=== PATIENT | male | born 1945 | race Caucasian/White ===

== ENCOUNTER 2021-09-26 05:12 | Inpatient (IN) | payer MEDICARE, OTHER, SELFPAY ==
[2021-09-26] VITALS (162 sets, daily range): BP systolic 69–112; BP diastolic 50–78; PULSE 105–124; RESP 10–35; TEMP 35.6–37.2; O2SAT 74–100; BMI 22.2
--- NOTE | 2021-09-26 05:18 | XRR_ITS ---
PROCEDURE INFORMATION: Exam: XR Chest Exam date and time: 09/26/2021 5:04 AM Age: 75 years old Clinical indication: Shortness of breath; Chest pressure; Patient HX: C/O chest pain with SOB. Hypoxic on monitor. ; Additional info: Cp TECHNIQUE: Imaging protocol: XR of the chest. Views: 1 view. Total images: 1 COMPARISON: No relevant prior studies available. FINDINGS: Lungs: Hyperinflation with prominent interstitial markings suggesting COPD changes. Pleural spaces: Unremarkable. No pleural effusion. No pneumothorax. Heart/Mediastinum: Unremarkable. No cardiomegaly. Vasculature: Atherosclerosis is evident. Bones/joints: Unremarkable. XR/XR chest 1V portable [id number] IMPRESSION: 1. Hyperinflation with prominent interstitial markings suggesting COPD changes. 2. No acute cardiopulmonary process.
--- NOTE | 2021-09-26 05:18 | ECG_ITS ---
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 Measurements Intervals [place] Rate: 116 P: 88 LA: 126 QRS: 89 QRSD: 104 T: -90 QT: 275 QTc: 383 Interpretive Statements SINUS TACHYCARDIA MARKED ST DEPRESSION, CONSIDER SUBENDOCARDIAL INJURY Compared to ECG 05/06/2014 13:43:28 ST (T wave) deviation now present Sinus rhythm no longer present Electronically Signed On 09-26-2021 20:02:57 CDT by Farnaz Guzman M.D. [id number]
--- NOTE | 2021-09-26 05:20 | ED_ITS ---
Documented by User: Bronson Fulton MD 09/26/21 06:11 HPI - Chest Pain General: Chief Complaint: Chest Pain Stated Complaint: CHEST PAIN Time Seen by Provider: 09/26/21 05:17 Source: patient and EMS Mode of arrival: EMS Limitations: no limitations History of Present Illness: 75-year-old male is here by EMS he had woke up tonight with some shortness of breath and some very mild chest pain EMS states when they arrived he was hypoxic in the 80s they placed him on 3 L of oxygen he was hypotensive to the give him IV fluids and aspirin he is currently pain-free. He denies any chest pain states he just has the shortness of breath. He has not seen a physician he states for over 5 years was a former smoker his glucose was elevated by EMS in the 300s. Associated symptoms: Reports dyspnea; Deny abdominal pain, fever(s), nausea or vomiting Review of Systems Const: Denies: fever(s), chills, body aches or change in appetite Eyes: Denies: blurry vision or eye discomfort ENMT: Denies: throat pain or dental pain Card: Reports: chest pain Resp: Reports: dyspnea GI: Denies: abdominal pain, nausea, vomiting or diarrhea : Denies: dysuria Musc: Denies: neck pain or back pain Skin/Breast: Denies: rash Neuro: Denies: headache(s) Psych: Denies: depression Alonzo/Lymph: Denies: easy bruising All/Imm: Denies: urticaria PFSH ED PFSH: Family History Grandmother Diabetes Social History Smoking and tobacco status: former smoker Second hand smoke exposure: No Smoking risk assessment/counseling performed?: No Alcohol intake: never Desire information about alcohol rehabilitation?: No Counseling given: No Desire information about substance/drug rehabilitation?: No Counseling given: No Adopted: No Caregiver/support person: No Lives independently: Yes Household members: spouse Housing: House Marital status: Number of children: 0 service: Yes status: Retired Current occupational status: retired History of recent travel: No Physical Exam Const: COMMON NORMALS: patient oriented x3 GENERAL APPEARANCE: ill appearing and frail appearing HENMT: COMMON NORMALS: normocephalic and atraumatic HEAD & SCALP: normocephalic and atraumatic Eye: COMMON NORMALS: Equal, round and reactive pupils present and EOMs intact bilaterally PUPIL: Yes Equal, round and reactive pupils present Neck/C-Spine: COMMON NORMALS: full ROM and supple Chest: COMMONS NORMALS: normal inspection of the chest and normal palpation of entire chest wall Resp: COMMON NORMALS: normal respiratory effort, No retractions, No use of accessory muscles and clear to auscultation bilaterally AUSCULTATION: clear to auscultation bilaterally Cardio: COMMON NORMALS: regular rate, regular rhythm and No murmurs present (Cardio) RATE: regular rate RHYTHM: regular rhythm GI: COMMON NORMALS: Normal to inspection, nondistended, normoactive bowel sounds present, Soft to palpation, non-tender and no masses PALPATION: Yes Soft to palpation Extremity: COMMON NORMALS: normal to inspection and full ROM Neuro: COMMON NORMALS: patient oriented x3, moves all extremities and no focal motor deficits Psych: COMMON NORMALS: mental status grossly normal, Normal thought process present and cooperative THOUGHT PROCESS: Normal thought process present Skin: COMMON NORMALS: no rashes or lesions noted and no wounds GENERAL SKIN EXAM: no rashes or lesions noted Course Reevaluation(s): Reevaluation #1: Spoke to Dr. Allen cardiology and reviewed patient's EKG with him patient does have depressions in V4 and V5 no signs of ST elevation he is not having active chest pain at this time or diaphoresis no signs of an acute STEMI at this time we will follow his symptoms EKGs and troponins closely Time: 05:23 Reevaluation #2: Patient's labs came back and he is anemic and did appear anemic here. He does h ave an elevated D-dimer as well concerned he could have possible cancer with his anemia and his profound recent weight loss. He states he is also had some decreased appetite depression as his years ago. He does have an elevated troponin here for 47 I believe that could be some global ischemia from his anemia. I did spoke to Dr. Allen again informed him of this troponin result he agrees he does not believe patient should go to the [facility] at this time as patient has not had any chest pain while he has been here either. We will continue to follow at this time patient care turned over to Dr. [place] Time: 06:10 Vital Signs: Vital signs: Vital Signs Temperature 98.9 F 09/26/21 09:57 Pulse Rate 115 H 09/26/21 09:57 Respiratory Rate 15 09/26/21 09:57 Blood Pressure 86/68 09/26/21 09:57 Pulse Oximetry 100 09/26/21 09:55 MDM - Chest Pain Lab Data : 09/26/21 05:35 09/26/21 05:35 Radiology Impressions Chest X-Ray 09/26/21 05:18 IMPRESSION: 1. Hyperinflation with prominent interstitial markings suggesting COPD changes. 2. No acute cardiopulmonary process. Chest/Abdomen/Pelvis CT 09/26/21 06:05 IMPRESSION: 1. Small bilateral pleural effusions with compressive atelectasis. 2. Moderate centrilobular emphysematous changes are present. 3. Bibasilar interstitial thickening favors mild interstitial edema. 4. No pulmonary artery embolism identified. 5. Minimal lateral right basilar tree in bud, which generally indicate pneumonia/aspiration and/or possibly atypical pneumonia. 6. Irregular area of pleural based opacity posteriorly within the left upper lobe felt to represent an area of scarring. IMPRESSION: 1. Irregular wall thickening of rectum and rectosigmoid junction suspicious for underlying mass and less likely adherent fecal matter. Area measures up to 4 cm in diameter. 2. Moderate stool burden. COMMENTS: Consistent with the [place] [employer] [place] [employer]'s Incidental Findings Committee white paper (J Am Naila Radiol 2018): Any incidental renal lesion less than 1 cm or classified as too small to characterize, or any incidental cystic renal lesion characterized as simple-appearing, is likely benign. No follow-up imaging is recommended for these lesions per consensus recommendations based on imaging criteria. Laboratory Results WBC 26.9 10^3/uL (4.0-10.0) H 09/26/21 05:35 RBC 3.36 10^6/uL (4.1-5.3) L 09/26/21 05:35 Hgb 5.6 g/dL (11.7-16.6) L* 09/26/21 05:35 Hct 22.4 % (42.0-52.0) L 09/26/21 05:35 MCV 66.7 fl (80-94) L 09/26/21 05:35 MCH 16.7 pg (28.0-34.0) L 09/26/21 05:35 MCHC 25.0 g/dL (30.0-36.0) L 09/26/21 05:35 RDW 18.6 % (12.1-15.1) H 09/26/21 05:35 Plt Count 544 10^3/cmm (130-400) H 09/26/21 05:35 MPV 9.1 fL (7.4-10.4) 09/26/21 05:35 Neut % (Auto) 90.3 % 09/26/21 05:35 Lymph % (Auto) 2.5 % 09/26/21 05:35 White % (Auto) 5.6 % 09/26/21 05:35 Eos % (Auto) 0.0 % 09/26/21 05:35 Baso % (Auto) 0.3 % 09/26/21 05:35 Neut # (Auto) 24.27 10^3/uL (1.8-7.7) H 09/26/21 05:35 Lymph # (Auto) 0.7 10^3/uL (0.8-4.8) L 09/26/21 05:35 White # (Auto) 1.5 10^3/uL (0.2-0.9) H 09/26/21 05:35 Eos # (Auto) 0.0 10^3/uL (0.0-0.8) 09/26/21 05:35 Baso # (Auto) 0.1 10^3/uL (0.0-0.1) 09/26/21 05:35 Nucleated RBC % (auto) 1.5 % 09/26/21 05:35 Nucleated RBCs # 0.4 /100WBC 09/26/21 05:35 D-Dimer 0.97 ug/mIFEU (0-0.59) H 09/26/21 05:35 Specimen Type Arterial 09/26/21 06:08 Sample Site Radial, left 09/26/21 06:08 ABG pH 7.36 (7.35-7.45) 09/26/21 06:08 ABG pCO2 25.5 mmHg (35-45) L 09/26/21 06:08 ABG pO2 166.0 mmHg (80.0-100.0) H 09/26/21 06:08 ABG HCO3 14.3 mmol/L (22-26) L 09/26/21 06:08 ABG Base Excess -10.4 mmol/L (-2.0-2.0) L 09/26/21 06:08 Ted Test Pos 09/26/21 06:08 Hematocrit 17.2 % (42-52) L 09/26/21 06:08 O2 Delivery Device Nc 09/26/21 06:08 O2 Liters/Min 3.0 % 09/26/21 06:08 Dark Room Attendant ID Hensa 09/26/21 06:08 Sodium 139 mmol/L (136-145) 09/26/21 05:35 Potassium 4.3 mmol/L (3.5-5.1) 09/26/21 05:35 Chloride 101 mmol/L (98-107) 09/26/21 05:35 Carbon Dioxide 12 mmol/L (22-29) L 09/26/21 05:35 Anion Gap 30.3 (5-19) H 09/26/21 05:35 BUN 34 mg/dL (8-23) H 09/26/21 05:35 Creatinine 1.3 mg/dL (0.7-1.2) H 09/26/21 05:35 GFR Calculation Not Reportable 09/26/21 05:35 Glucose 238 mg/dL (65-115) H 09/26/21 05:35 POC Glucose 262 mg/dL (70-110) H 09/26/21 05:35 Calculated Osmolality 303 mOsm/kg (285-295) H 09/26/21 05:35 Lactic Acid 8.1 mmol/L (0.5-2.2) H* 09/26/21 08:05 Calcium 8.4 mg/dL (8.5-10.5) L 09/26/21 05:35 Total Bilirubin 0.4 mg/dL (0.15-1.2) 09/26/21 05:35 AST 30 U/L (0-40) 09/26/21 05:35 ALT 13 U/L (0-41) 09/26/21 05:35 Alkaline Phosphatase 131 IU/L (40-130) H 09/26/21 05:35 Troponin T Baseline 447 ng/L (0-15) H* 09/26/21 05:35 Troponin T 120 Minute 440.4 ng/L (0-15) H 09/26/21 07:18 Delta Troponin T -6.6 ABS# (0-10) L 09/26/21 07:18 NT-Pro-B Natriuret Pep 36338 pg/mL (0-125) H 09/26/21 05:35 Total Protein 6.2 g/dL (6.6-8.7) L 09/26/21 05:35 Albumin 3.0 g/dL (3.5-5.2) L 09/26/21 05:35 Globulin 3.2 g/dL (1.3-4.6) 09/26/21 05:35 Blood Type O Positive 09/26/21 08:05 Rho(D) Type Positive 09/26/21 08:05 Antibody Screen Negative 09/26/21 08:05 Crossmatch See Detail 09/26/21 08:05 EKG Data EKG 1: I personally reviewed and interpreted this EKG as follows: EKG interpretation date: 09/26/21 EKG interpretation time: 05:16 Interpretation: sinus tach hr 116 st depression in v4-v6 no st elevation qrs 104 qtc 344 Discharge Plan Discharge Patient Disposition: Admitted As Inpatient Clinical Impression: Non-ST elevation [place] (NSTEMI), Anemia, Rectal mass, D-dimer, elevated Condition: Stable Prescriptions: No Action No Known Home Medications 0RF Referrals: Nelida Gunn, [facility] [Primary Care Provider] - Sign Out Sign Out Data: Patient Sign Out occurred on 09/26/21 at 06:26. Patient's care was discussed, and care was transferred from to Yousif Bob DO. Coding Level of Care Code ED Home Economist Consumer Service for Chg Fwd Exam Comprehensive Documented by User: Yousif Bob DO 09/26/21 10:08 HPI - Chest Pain General: Chief Complaint: Chest Pain Stated Complaint: CHEST PAIN Time Seen by Provider: 09/26/21 05:17 [facility] ED PFSH: Family History Grandmother Diabetes Social History Smoking and tobacco status: former smoker Second hand smoke exposure: No Smoking risk assessment/counseling performed?: No Alcohol intake: never Desire information about alcohol rehabilitation?: No Counseling given: No Desire information about substance/drug rehabilitation?: No Counseling given: No Adopted: No Caregiver/support person: No Lives independently: Yes Household members: spouse Housing: House Marital status: Number of children: 0 service: Yes status: Retired Current occupational status: retired History of recent travel: No Course Vital Signs: Vital signs: Vital Signs Temperature 98.9 F 09/26/21 09:57 Pulse Rate 115 H 09/26/21 09:57 Respiratory Rate 15 09/26/21 09:57 Blood Pressure 86/68 09/26/21 09:57 Pulse Oximetry 100 09/26/21 09:55 MDM - Chest Pain Medical Decision Making Care assumed from Dr. Fulton at change of shift. Patient is profoundly anemic with a hemoglobin of 5 6. He has ischemic changes on his EKG with an elevated troponin however he is not a good candidate for any kind of anticoagulation or intervention he is not currently having significant chest discomfort we did review the EKGs Dr. Allen he does not recommend any intervention at this time or anticoagulation due to his anemia. He recommends transfusion which we have already initiated. On CT patient has rectosigmoid mass extending 4 cm. We did a Hemoccult on him which was positive. Patient will be admitted to the ICU he still is hypotensive but his map is above 65 he is mildly tachycardic but that has improved he is currently receiving blood products and has given given crystalloids. Discussed with Dr. Lockwood. We are also starting antibiotics for potential aspiration pneumonia. CT of the chest was done due to elevated D- dimer negative for PE. Orders are written. Medical Records I reviewed the patient's medical records. Lab Data I reviewed the patient's lab results. : 09/26/21 05:35 09/26/21 05:35 Radiology Impressions Chest X-Ray 09/26/21 05:18 IMPRESSION: 1. Hyperinflation with prominent interstitial markings suggesting COPD changes. 2. No acute cardiopulmonary process. Chest/Abdomen/Pelvis CT 09/26/21 06:05 IMPRESSION: 1. Small bilateral pleural effusions with compressive atelectasis. 2. Moderate centrilobular emphysematous changes are present. 3. Bibasilar interstitial thickening favors mild interstitial edema. 4. No pulmonary artery embolism identified. 5. Minimal lateral right basilar tree in bud, which generally indicate pneumonia/aspiration and/or possibly atypical pneumonia. 6. Irregular area of pleural based opacity posteriorly within the left upper lobe felt to represent an area of scarring. IMPRESSION: 1. Irregular wall thickening of rectum and rectosigmoid junction suspicious for underlying mass and less likely adherent fecal matter. Area measures up to 4 cm in diameter. 2. Moderate stool burden. COMMENTS: Consistent with the [place] [employer]'s Incidental Findings Committee white paper (J Am Naila Radiol 2018): Any incidental renal lesion less than 1 cm or classified as too small to characterize, or any incidental cystic renal lesion characterized as simple-appearing, is likely benign. No follow-up imaging is recommended for these lesions per consensus recommendations based on imaging criteria. Laboratory Results WBC 26.9 10^3/uL (4.0-10.0) H 09/26/21 05:35 RBC 3.36 10^6/uL (4.1-5.3) L 09/26/21 05:35 Hgb 5.6 g/dL (11.7-16.6) L* 09/26/21 05:35 Hct 22.4 % (42.0-52.0) L 09/26/21 05:35 MCV 66.7 fl (80-94) L 09/26/21 05:35 MCH 16.7 pg (28.0-34.0) L 09/26/21 05:35 MCHC 25.0 g/dL (30.0-36.0) L 09/26/21 05:35 RDW 18.6 % (12.1-15.1) H 09/26/21 05:35 Plt Count 544 10^3/cmm (130-400) H 09/26/21 05:35 MPV 9.1 fL (7.4-10.4) 09/26/21 05:35 Neut % (Auto) 90.3 % 09/26/21 05:35 Lymph % (Auto) 2.5 % 09/26/21 05:35 White % (Auto) 5.6 % 09/26/21 05:35 Eos % (Auto) 0.0 % 09/26/21 05:35 Baso % (Auto) 0.3 % 09/26/21 05:35 Neut # (Auto) 24.27 10^3/uL (1.8-7.7) H 09/26/21 05:35 Lymph # (Auto) 0.7 10^3/uL (0.8-4.8) L 09/26/21 05:35 White # (Auto) 1.5 10^3/uL (0.2-0.9) H 09/26/21 05:35 Eos # (Auto) 0.0 10^3/uL (0.0-0.8) 09/26/21 05:35 Baso # (Auto) 0.1 10^3/uL (0.0-0.1) 09/26/21 05:35 Nucleated RBC % (auto) 1.5 % 09/26/21 05:35 Nucleated RBCs # 0.4 /100WBC 09/26/21 05:35 D-Dimer 0.97 ug/mIFEU (0-0.59) H 09/26/21 05:35 Specimen Type Arterial 09/26/21 06:08 Sample Site Radial, left 09/26/21 06:08 ABG pH 7.36 (7.35-7.45) 09/26/21 06:08 ABG pCO2 25.5 mmHg (35-45) L 09/26/21 06:08 ABG pO2 166.0 mmHg (80.0-100.0) H 09/26/21 06:08 ABG HCO3 14.3 mmol/L (22-26) L 09/26/21 06:08 ABG Base Excess -10.4 mmol/L (-2.0-2.0) L 09/26/21 06:08 Ted Test Pos 09/26/21 06:08 Hematocrit 17.2 % (42-52) L 09/26/21 06:08 O2 Delivery Device Nc 09/26/21 06:08 O2 Liters/Min 3.0 % 09/26/21 06:08 Dark Room Attendant ID Vika 09/26/21 06:08 Sodium 139 mmol/L (136-145) 09/26/21 05:35 Potassium 4.3 mmol/L (3.5-5.1) 09/26/21 05:35 Chloride 101 mmol/L (98-107) 09/26/21 05:35 Carbon Dioxide 12 mmol/L (22-29) L 09/26/21 05:35 Anion Gap 30.3 (5-19) H 09/26/21 05:35 BUN 34 mg/dL (8-23) H 09/26/21 05:35 Creatinine 1.3 mg/dL (0.7-1.2) H 09/26/21 05:35 GFR Calculation Not Reportable 09/26/21 05:35 Glucose 238 mg/dL (65-115) H 09/26/21 05:35 POC Glucose 262 mg/dL (70-110) H 09/26/21 05:35 Calculated Osmolality 303 mOsm/kg (285-295) H 09/26/21 05:35 Lactic Acid 8.1 mmol/L (0.5-2.2) H* 09/26/21 08:05 Calcium 8.4 mg/dL (8.5-10.5) L 09/26/21 05:35 Total Bilirubin 0.4 mg/dL (0.15-1.2) 09/26/21 05:35 AST 30 U/L (0-40) 09/26/21 05:35 ALT 13 U/L (0-41) 09/26/21 05:35 Alkaline Phosphatase 131 IU/L (40-130) H 09/26/21 05:35 Troponin T Baseline 447 ng/L (0-15) H* 09/26/21 05:35 Troponin T 120 Minute 440.4 ng/L (0-15) H 09/26/21 07:18 Delta Troponin T -6.6 ABS# (0-10) L 09/26/21 07:18 NT-Pro-B Natriuret Pep 95666 pg/mL (0-125) H 09/26/21 05:35 Total Protein 6.2 g/dL (6.6-8.7) L 09/26/21 05:35 Albumin 3.0 g/dL (3.5-5.2) L 09/26/21 05:35 Globulin 3.2 g/dL (1.3-4.6) 09/26/21 05:35 Blood Type O Positive 09/26/21 08:05 Rho(D) Type Positive 09/26/21 08:05 Antibody Screen Negative 09/26/21 08:05 Crossmatch See Detail 09/26/21 08:05 Discharge Plan Discharge Patient Disposition: Admitted As Inpatient Clinical Impression: Non-ST elevation [place] (NSTEMI), Anemia, Rectal mass, D-dimer, elevated Condition: Stable Prescriptions: No Action No Known Home Medications 0RF Referrals: Nelida Gunn, [facility] [Primary Care Provider] - Sign Out Sign Out Data: Patient Sign Out occurred on 09/26/21 at 06:26. Patient's care was discussed, and care was transferred from to Yousif Bob DO. Coding Level of Care Code ED Home Economist Consumer Service for Thug Fwd Exam Comprehensive
[2021-09-26 05:38] LABS: Glucose Point of Care 262 mg/dL (70-110)
[2021-09-26 05:46] LABS: Basophils # 0.1 10^3/uL (0.0-0.1); Basophils % 0.3 %; Hematocrit 22.4 % (42.0-52.0); Lymphocytes # 0.7 10^3/uL (0.8-4.8); Lymphocytes % 2.5 %; Mean Corpuscular Hemoglobin 16.7 pg (28.0-34.0); Mean Corpuscular Volume 66.7 fl (80-94); Mean Platelet Volume 9.1 fL (7.4-10.4); Monocytes # 1.5 10^3/uL (0.2-0.9); Monocytes % 5.6 %; Neutrophils # 24.27 10^3/uL (1.8-7.7); Neutrophils % 90.3 %; Nucleated Red Blood Cells # 0.4 /100WBC; Nucleated Red Blood Cells % 1.5 %; Platelet Count 544 10^3/cmm (130-400); Red Blood Count 3.36 10^6/uL (4.1-5.3); Red Cell Distribution Width 18.6 % (12.1-15.1); White Blood Count 26.9 10^3/uL (4.0-10.0)
[2021-09-26 05:59] LABS: D Dimer 0.97 ug/mIFEU (0-0.59)
[2021-09-26 06:02] LABS: Hemoglobin 5.6 g/dL (11.7-16.6)
--- NOTE | 2021-09-26 06:05 | CTR_ITS ---
PROCEDURE INFORMATION: Exam: CTA Chest With Contrast Exam date and time: 09/26/2021 6:51 AM Age: 75 years old Clinical indication: Abdominal tenderness; Shortness of breath; Additional info: SOB TECHNIQUE: Imaging protocol: Computed tomographic angiography of the chest with contrast. 3D rendering (Not supervised by radiologist): MIP and/or 3D reconstructed images were created by the technologist. Total images: 1117 Radiation optimization: All CT scans at this facility use at least one of these dose optimization techniques: automated exposure control; mA and/or kV adjustment per patient size (includes targeted exams where dose is matched to clinical indication); or iterative reconstruction. Contrast material: OMNI 350; Contrast volume: 95 ml; Contrast route: INTRAVENOUS (IV); COMPARISON: CR XR chest 1V portable [id number] 09/26/2021 5:04 AM RADIATION DOSE METRICS: Total DLP (mGy-cm): 1069.03 FINDINGS: Pulmonary arteries: Pulmonary artery evaluation of good technical quality with no pulmonary artery embolism identified. Aorta: Unremarkable. No aortic aneurysm. No aortic dissection. Other arteries: Mild atherosclerotic disease is evident. Lungs: Compressive atelectasis of the lungs. Moderate centrilobular emphysematous changes are present. Bibasilar interstitial thickening favors mild interstitial edema. Minimal lateral right basilar tree in bud, which generally indicate pneumonia/aspiration and/or possibly atypical pneumonia. Pleural spaces: Small bilateral pleural effusions are present. Irregular area of pleural based opacity posteriorly within the left upper lobe felt to represent an area of scarring. Heart: There is moderate coronary arterial calcification present. Lymph nodes: Unremarkable. No enlarged lymph nodes. Bones/joints: Multiple Schmorl's nodes noted. Soft tissues: Unremarkable. PROCEDURE INFORMATION: Exam: CT Abdomen And Pelvis With Contrast Exam date and time: 09/26/2021 6:51 AM Age: 75 years old Clinical indication: Abdominal tenderness; Shortness of breath; Additional info: SOB TECHNIQUE: Imaging protocol: Computed tomography of the abdomen and pelvis with contrast. Radiation optimization: All CT scans at this facility use at least one of these dose optimization techniques: automated exposure control; mA and/or kV adjustment per patient size (includes targeted exams where dose is matched to clinical indication); or iterative reconstruction. Contrast material: OMNI 350; Contrast volume: 95 ml; Contrast route: INTRAVENOUS (IV); COMPARISON: CR XR chest 1V portable [id number] 09/26/2021 5:04 AM RADIATION DOSE METRICS: Total DLP (mGy-cm): 1069.03 FINDINGS: Liver: Normal. No mass. Gallbladder and bile ducts: Normal. No calcified stones. No ductal dilation. Pancreas: Normal. No ductal dilation. Spleen: Normal. No splenomegaly. Adrenal glands: Normal. No mass. Kidneys and ureters: 5.4 cm largest cyst noted in kidneys that have multiple simple renal cysts. No further evaluation required. Stomach and bowel: Irregular wall thickening of rectum and rectosigmoid junction suspicious for underlying mass and less likely adherent fecal matter. Area measures up to 4 cm in diameter. Moderate stool burden. Appendix: No evidence of appendicitis. Intraperitoneal space: Unremarkable. No free air. No significant fluid collection. Vasculature: Moderate atherosclerotic disease is evident. Mildly dilated infrarenal abdominal aorta measured at 2.2 cm. Lymph nodes: Unremarkable. No enlarged lymph nodes. Urinary bladder: Unremarkable as visualized. Reproductive: The prostate gland contains benign-appearing calcifications that are likely parenchymal. Bones/joints: Unremarkable. No acute fracture. Soft tissues: Unremarkable. CT/CT angio chest w abd pel w con IMPRESSION: 1. Small bilateral pleural effusions with compressive atelectasis. 2. Moderate centrilobular emphysematous changes are present. 3. Bibasilar interstitial thickening favors mild interstitial edema. 4. No pulmonary artery embolism identified. 5. Minimal lateral right basilar tree in bud, which generally indicate pneumonia/aspiration and/or possibly atypical pneumonia. 6. Irregular area of pleural based opacity posteriorly within the left upper lobe felt to represent an area of scarring. IMPRESSION: 1. Irregular wall thickening of rectum and rectosigmoid junction suspicious for underlying mass and less likely adherent fecal matter. Area measures up to 4 cm in diameter. 2. Moderate stool burden. COMMENTS: Consistent with the [place] [employer]'s Incidental Findings Committee white paper (J Am Naila Radiol 2018): Any incidental renal lesion less than 1 cm or classified as too small to characterize, or any incidental cystic renal lesion characterized as simple-appearing, is likely benign. No follow-up imaging is recommended for these lesions per consensus recommendations based on imaging criteria.
[2021-09-26 06:07] LABS: Troponin(5th) Baseline 447 ng/L (0-15)
[2021-09-26 06:15] LABS: Alanine Aminotransferase 13 U/L (0-41); Alkaline Phosphatase 131 IU/L (40-130); Anion Gap 30.3 (5-19); Aspartate Amino Transferase 30 U/L (0-40); Blood Urea Nitrogen 34 mg/dL (8-23); Calcium 8.4 mg/dL (8.5-10.5); Carbon Dioxide 12 mmol/L (22-29); Chloride 101 mmol/L (98-107); Globulin 3.2 g/dL (1.3-4.6); Glucose 238 mg/dL (65-115); NT Pro B Type Natriuretic Pept 14818 pg/mL (0-125); Osmolality Calculated 303 mOsm/kg (285-295); Potassium 4.3 mmol/L (3.5-5.1); Sodium 139 mmol/L (136-145); Total Bilirubin 0.4 mg/dL (0.15-1.2); Total Protein 6.2 g/dL (6.6-8.7)
[2021-09-26 06:19] LABS: Creatinine Clr Calc Pharmacy 46.1323
[2021-09-26 06:21] LABS: ABG PCO2 25.5 mmHg (35-45); ABG PH Result 7.36 (7.35-7.45); Arterial Blood Gas Hematocrit 17.2 % (42-52); Base Excess ABG -10.4 mmol/L (-2.0-2.0); Blood Gas Allen Test Pos; Blood Gas Sample Site Radial, left; Blood Gas Sample Type Arterial; HCO3 ABG 14.3 mmol/L (22-26); Oxygen Device NC
--- NOTE | 2021-09-26 07:18 | ECG_ITS ---
[facility] Test Date: 2021-09-26 Pat Name: Keenan Burroughs Department: Room: Gender: Male Supervisor Stone: : 1945 Requested By: Bronson Fulton Order Number: [id number] Curtis MD: Farnaz Guzman M.D. Measurements Intervals [place] Rate: 116 P: 81 HI: 141 QRS: 89 QRSD: 91 T: 0 QT: 289 QTc: 402 Interpretive Statements SINUS TACHYCARDIA MARKED ST DEPRESSION, CONSIDER SUBENDOCARDIAL INJURY Compared to ECG 09/26/2021 05:16:56 No significant changes Electronically Signed On 09-26-2021 20:21:57 CDT by Farnaz Guzman M.D. [id number]
[2021-09-26] MEDS: iohexol 350 mg/mL 100 mL Btl IV (07:26)
--- NOTE | 2021-09-26 07:54 | PC.PHAR ---
pt states he takes no rx or otc medications-no meds pull up on ext med history
[2021-09-26 08:11] LABS: Troponin 5 2HR Delta -6.6 ABS# (0-10)
[2021-09-26 08:12] LABS: Troponin 5 2HR 440.4 ng/L (0-15)
[2021-09-26] MEDS: lactated ringers 1,000 ML 999 ML IV (08:41)
[2021-09-26 08:47] LABS: Lactic Sepsis W/Reflex 8.1 mmol/L (0.5-2.2)
[2021-09-26] MEDS: piperacillin-tazobactam 3.375 GM in sodium chloride 0.9% (plus) 50 ML IV ×3 (09:01→23:11)
[2021-09-26 10:12] LABS: Reflex Lactate Order REFLEX LACTIC ORDERD
--- NOTE | 2021-09-26 11:12 | P.HP_ITS ---
Providers/Chief Complaint Admitting Physician: Kalpesh Lockwood MD Primary Care Provider: ABY Guallpa Chief Complaint: CHEST PAIN History of Present Illness Keenan Burroughs is a 75 year old male who presents to the emergency department complaining of significant dizziness, shortness of breath, and fatigue. He denies any chest discomfort. He reports no blood in his stool, black or tarry stool. Symptoms have been going on for weeks but worsening. He has lost about 20 pounds in the last 2 to 3 months. Within the last year he also lost his . No vomiting, severe reflux, blood in urine. Denies nosebleeds. States he has no real health problems. In the emergency department he was found to be significantly hypotensive, anemic, and have an abnormal EKG. He is currently being transfused, getting IV fluids as well as IV antibiotics. Sodium bicarb was given as well. Blood pressure appears to be improving. Review of Systems General: Reports: 10 or more systems reviewed and unremarkable except in HPI and below Const: Reports: malaise; Denies: fever(s) or chills Eyes: Denies: change in vision ENMT: Denies: throat pain Card: Reports: pre-syncope and dyspnea on exertion; Denies: chest pain Resp: Reports: dyspnea GI: Denies: abdominal pain, nausea, vomiting, hematemesis, hematochezia or melena : Denies: flank pain Musc: Denies: neck pain Skin/Breast: Denies: rash Neuro: Denies: headache(s) Psych: Denies: anxiety or depression Endo: Denies: polyuria Alonzo/Lymph: Denies: easy bruising All/Imm: Denies: urticaria Medications/Allergies Home Medications Medication Instructions Recorded Confirmed Last Taken Type No Known Home Medications 09/01/20 09/26/21 Unknown History Allergies Allergy/AdvReac Type Severity Reaction Status Date / Time No Known Allergies Allergy Verified 09/26/21 07:55 PFSH Acute PFSH: Surgical History (Updated 09/26/21 @ 11:17 by Kalpesh Lockwood MD) History of hemorrhoidectomy Family History Grandmother Diabetes Social History Smoking and tobacco status: former smoker Second hand smoke exposure: No Smoking risk assessment/counseling performed?: No Alcohol intake: never Desire information about alcohol rehabilitation?: No Counseling given: No Desire information about substance/drug rehabilitation?: No Counseling given: No Adopted: No Caregiver/support person: No Lives independently: Yes Household members: spouse Housing: House Marital status: Number of children: 0 service: Yes status: Retired Current occupational status: retired History of recent travel: No Vitals/I&O/Wt Last Vital Signs Temp 98.8 F 09/26/21 10:24 Pulse 109 H 09/26/21 10:24 Resp 15 09/26/21 10:24 BP 92/70 09/26/21 10:24 Pulse Ox 100 09/26/21 10:24 09/25/21 09/26/21 09/26/21 22:59 06:59 14:59 Intake Total 1050 / 1050 Balance 1050 / 1050 Weight last 48 hrs Weight 64.41 kg Physical Exam Narrative: General exam demonstrates a pale appearing male, who is conversant and pleasant he denies any significant chest discomfort. He reports he feels better than on presentation. HEENT: Atraumatic normocephalic. Pupils equally round. Oropharynx clear. Arcus senilis noted. Neck is supple no lymphadenopathy or thyromegaly Cardiovascular tachycardic, no murmur. No S3 or S4 Lungs clear to auscultation bilaterally. No wheezing or crackles Abdomen is soft nontender positive bowel sounds. No obvious organomegaly exam is deferred Extremities no cyanosis clubbing or edema, cap refill brisk Skin no rash Neuro no focal deficits. Data : 09/26/21 05:35 09/26/21 05:35 Other Labs: EKG demonstrated sinus tachycardia with a rate of 116, normal axis, T wave depression V4 through 6, impressive Dimer elevated at 0.97 ABG with a pH of 7.36, PCO2 25, PO2 of 166 Initial lactic acid 8.1, repeat pending LFTs normal Calcium 8.4 Alk phos 131 Troponin 447 with repeat of 440 BNP 14,818 Albumin 3.0 Chest x-ray no infiltrate CT chest abdomen and pelvis demonstrates right lung pneumonia/aspiration, COPD changes, small bilateral effusions. CT abdomen pelvis demonstrated irregular wall thickening rectosigmoid junction suspicious for underlying mass, moderate stool Blood cultures were obtained Micro: Microbiology 09/26/21 08:18 Blood Culture - Preliminary Blood SPECIMEN COLLECTED 09/26/21 08:05 Blood Culture - Preliminary Blood SPECIMEN COLLECTED A&P Assessment and plan (1) Anemia: Severe anemia, microcytic. I suspect this is been going on quite a while. Likely linked to concern of rectal mass. Severe anemia as cause complication of non-ST elevation myocardial infarction, hypotension, severe acidosis. Agree with fluid resuscitation started in the emergency department as well as 2 units of packed red blood cells currently being transfused. Check iron studies Repeat hemoglobin 1 hour following transfusion. Transfuse further if needed. Target hemoglobin above 8 initially considering significant abnormal EKG on admission but could transfuse further if any ongoing cardiac concerns are noted after resuscitation Protonix IV Status: Acute (2) Non-ST elevation DC (NSTEMI): This is likely caused by severe anemia on presentation. Will provide statin. Aspirin, anticoagulation, nitrates, beta-hernesto all contraindicated with his hypotension and anemia with presumed blood loss. Will reevaluate as he stabilizes. 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 Status: Acute (3) Hypotension: Likely secondary to his severe anemia. This is improving with transfusion and fluid resuscitation. Continue to monitor closely in the ICU. Status: Acute (4) Rectal mass: Concern of rectal mass noted in colon. Has underlying anemia, likely iron deficient Will need exploration, after the patient has been resuscitated and stabilized. Consider GI consultation at that time. Status: Acute (5) D-dimer, elevated: Secondary to acute illness. Pulmonary embolism not suspected. Status: Acute (6) Pneumonia: Probable right lower lobe pneumonia, possible aspiration noted on admission. Zosyn IV, sputum culture, MRSA PCR Oxygen as needed Status: Acute (7) Metabolic acidosis: Secondary to severe anemia and hypotension. This should resolve with hydration and resuscitation Status: Acute Plan Full code SCDs for DVT prophylaxis. Anticoagulation contraindicated secondary to severe anemia Attestations Medical Necessity Statement*: Will need greater than 2 midnight stay for anthony luation and treatment of severe anemia, hypotension, non-ST elevation DC, colonic tumor Critical Care Time: The high probability of a clinically significant, sudden or life threatening deterioration of the patient's [cardiac, hematologic, pulmonary, gastrointestinal system(s) required my full and direct attention, intervention and personal management. The critical care time is as shown. 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
--- NOTE | 2021-09-26 11:18 | ECG_ITS ---
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 Measurements Intervals [place] Rate: 112 P: 68 DE: 120 QRS: 78 QRSD: 92 T: -90 QT: 342 QTc: 467 Interpretive Statements SINUS TACHYCARDIA LOW QRS VOLTAGE IN EXTREMITY LEADS [QRS DEFLECTION < 0.5 mV IN LIMB LEADS] ST DEPRESSION, CONSIDER SUBENDOCARDIAL INJURY [0.1+ mV ST DEPRESSION] Compared to ECG 09/26/2021 07:27:54 Low QRS voltage now present ST (T wave) deviation still present Electronically Signed On 09-26-2021 20:17:48 CDT by Farnaz Guzman M.D. [id number]
--- NOTE | 2021-09-26 11:22 | USCV_ITS ---
Keenan Burroughs Age: 75 Gender: M : 1945 Exam Date: 09/26/2021 12:07 Ordering Phys: Kalpesh Lockwood MD Technologist: SUSY [place] [facility] [place]ication: NSTEMI. No hx cardiac intervention per patient. BP: 83 / 66 HR: 40 Rhythm: sinus tachycardia Technical Quality: Adequate MEASUREMENTS (Male / Female) Normal Values 2D ECHO LV Diastolic Diameter PLAX 4.4 cm 4.2 - 5.9 / 3.9 - 5.3 cm LV Systolic Diameter PLAX 3.9 cm IVS Diastolic Thickness 0.9 cm 0.6 - 1.0 / 0.6 - 0.9 cm IVS Systolic Thickness 1.0 cm LVPW Diastolic Thickness 0.8 cm 0.6 - 1.0 / 0.6 - 0.9 cm LVPW Systolic Thickness 1.3 cm LVOT Diameter 2.0 cm LV Ejection Fraction 2D Teich 27.1 % LV Ejection Fraction MOD 2C 28.1 % LV Ejection Fraction 2C AL 29.5 % LA Diameter 3.5 cm RA Width 3.6 cm RA Height 4.1 cm Aorta at Sinotubular Diameter 3.3 cm M-MODE Aortic Annulus Diameter 3.4 cm LA Ao Ratio MM 1.0 MV E Point Septal Separation 2.7 cm DOPPLER AV Peak Velocity 193.7 cm/s LVOT Peak Velocity 45.0 cm/s AV Area Cont Eq vti 0.8 cm squared AV Area Cont Eq pk 0.7 cm squared MV Area PHT 3.5 cm squared MV E' Velocity 50.0 cm/s Mitral E to MV E' Ratio 12.1 Mitral E to LV E' Lateral Ratio 10.2 Mitral E to LV E' Septal Ratio 14.8 TR Peak Velocity 269.0 cm/s TR Peak Gradient 28.9 mmHg TV Peak E Velocity 56.0 cm/s PV Peak Velocity 146.0 cm/s RV Acceleration Time 0.1 s RV Ejection Time 0.3 s RV AcT/ET 0.3 FINDINGS Left Ventricle The ventricle is normal in size to slightly enlarged. There is severe global hypokinesis with near akinesis of the anterior wall, septum and apex. This would suggest an LAD lesion however with the tachycardia the specifics of the wall motion disturbances are difficult. The overall ejection fraction is about 25%. Grade 2 diastolic dysfunction. Right Ventricle Normal right ventricular size and systolic function. Right Atrium Mildly increased right atrial size. Left Atrium Moderately increased left atrial size. Mitral Valve Structurally normal mitral valve. Severe mitral valve regurgitation. Aortic Valve Structurally normal aortic valve without significant sclerosis or stenosis. There is no aortic regurgitation. Tricuspid Valve Structurally normal tricuspid valve. Trace to mild tricuspid valve regurgitation. Pulmonic Valve Pulmonic valve not well visualized. Pericardium Trivial non-hemodynamically significant pericardial effusion. Large pleural effusion Aorta Normal ascending aorta dimension. CONCLUSIONS The ventricle is normal in size to slightly enlarged. There is severe global hypokinesis with near akinesis of the anterior wall, septum and apex. This would suggest an LAD lesion however with the tachycardia the specifics of the wall motion disturbances are difficult. The overall ejection fraction is about 25%. Grade 2 diastolic dysfunction. Mildly increased right atrial size. Moderately increased left atrial size. Structurally normal mitral valve. Severe mitral valve regurgitation. Trivial non-hemodynamically significant pericardial effusion. Large pleural effusion. There are no prior echocardiogram studies to compare. Dr. Ryan Allen MD (Electronically Signed) Final Date: 26 Sep 2021 17:10 S
[2021-09-26 11:26] LABS: Hematocrit 31.8 % (42.0-52.0); Hemoglobin 8.9 g/dL (11.7-16.6)
[2021-09-26 11:47] LABS: Lactic Acid level (Lactate) 6.2 mmol/L (0.5-2.2)
[2021-09-26] MEDS: pantoprazole 40 mg SDV IVP ×2 (12:00→23:11)
[2021-09-26] MEDS: sodium chloride 0.9% 1,000 ML 100 ML IV (12:00)
[2021-09-26 12:03] LABS: Ferritin 8 ng/mL (30-400); Iron 28 ug/dL (59-158); Thyroid Stimulating Hormone 3.66 uIU/mL (0.27-4.20); Total Iron Binding Capacity 350 mcg/dl; Unsaturated Iron Binding 322 ug/dL (112-347)
[2021-09-26 12:05] LABS: Troponin 5 6HR 889.1 ng/L (0-15); Troponin 5 6HR Delta 442.1 ng/L (0-12)
[2021-09-26] MEDS: sodium chloride 0.9% 500 ML 999 ML IV (14:14)
[2021-09-26 16:00] LABS: Hematocrit 29.2 % (42.0-52.0); Hemoglobin 8.4 g/dL (11.7-16.6)
--- NOTE | 2021-09-26 16:10 | PC.NURSE ---
Patients hemoglobin remains low, called Dr. Lockwood per his request upon lab results. Received order to transfuse 1 unit packed red blood cells and a PRN levophed order to maintain MAP>65.
[2021-09-26] MEDS: atorvastatin 40 mg Tablet PO (20:12)
[2021-09-27] VITALS (25 sets, daily range): BP systolic 80–109; BP diastolic 56–82; PULSE 100–126; RESP 15–41; TEMP 36.6–36.9; O2SAT 91–100
[2021-09-27 03:23] LABS: Basophils % 0.1 %; Hemoglobin 10.3 g/dL (11.7-16.6); Lymphocytes # 0.7 10^3/uL (0.8-4.8); Lymphocytes % 3.5 %; Mean Corpuscular HGB Conc 30.3 g/dL (30.0-36.0); Mean Corpuscular Hemoglobin 21.1 pg (28.0-34.0); Mean Corpuscular Volume 69.8 fl (80-94); Mean Platelet Volume 9.7 fL (7.4-10.4); Monocytes % 9.7 %; Neutrophils % 86.1 %; Nucleated Red Blood Cells # 0.2 /100WBC; Nucleated Red Blood Cells % 1.2 %; Platelet Count 502 10^3/cmm (130-400); Red Blood Count 4.87 10^6/uL (4.1-5.3); Red Cell Distribution Width 22.7 % (12.1-15.1); White Blood Count 20.2 10^3/uL (4.0-10.0)
[2021-09-27 04:00] LABS: Alanine Aminotransferase 157 U/L (0-41); Albumin Level 3.1 g/dL (3.5-5.2); Alkaline Phosphatase 128 IU/L (40-130); Anion Gap 23.2 (5-19); Aspartate Amino Transferase 236 U/L (0-40); Blood Urea Nitrogen 42 mg/dL (8-23); Calcium 8.6 mg/dL (8.5-10.5); Carbon Dioxide 16 mmol/L (22-29); Chloride 107 mmol/L (98-107); Chol HDL Ratio 3.06 mg/dL (1.0-5.00); Cholesterol 101 mg/dL (0-200); Globulin 2.6 g/dL (1.3-4.6); Glucose 102 mg/dL (65-115); HDL Cholesterol 33 mg/dL (60-100); LDL Cholesterol Calculated 53 mg/dL (50-129); LDL HDL Ratio 1.61 RATIO (0.00-3.22); Magnesium 2.3 mg/dL (1.7-2.3); Osmolality Calculated 303 mOsm/kg (285-295); Potassium 5.2 mmol/L (3.5-5.1); Sodium 141 mmol/L (136-145); Total Bilirubin 2.1 mg/dL (0.15-1.2); Total Protein 5.7 g/dL (6.6-8.7); Triglycerides 74 mg/dL (0-150)
[2021-09-27] MEDS: piperacillin-tazobactam 3.375 GM in sodium chloride 0.9% (plus) 50 ML IV ×3 (06:06→23:45)
[2021-09-27 07:14] LABS: Add Urine Microscopic? YES; Bilirubin Urine Neg (Negative); Blood Urine 2+ (Negative); Glucose Urine UA Norm (Normal); Ketones Urine 1+ (Negative); Leukocyte Esterase Urine Negative (Negative); Nitrate Urine Negative (Negative); Protein Urine 1+ (Negative); RBC Urine RARE /hpf (0-2); Specific Gravity, Urine 1.015 (1.005-1.030); Urine Appearance Clear (CLEAR); Urine Color Yellow (Yellow); Urobilinogen Urine Norm (Negative); WBC Urine RARE /hpf (0-5); pH Urine 5 (5-7)
[2021-09-27 07:15] LABS: Bacteria Urine TRACE /hpf
--- NOTE | 2021-09-27 07:36 | ECG_ITS ---
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 Measurements Intervals [place] Rate: 112 P: 66 SC: 124 QRS: 84 QRSD: 93 T: 0 QT: 328 QTc: 448 Interpretive Statements SINUS TACHYCARDIA LOW QRS VOLTAGE IN EXTREMITY LEADS [QRS DEFLECTION < 0.5 mV IN LIMB LEADS] SEPTAL MYOCARDIAL INFARCTION , PROBABLY OLD [40+ ms Q WAVE IN V1/V2] ST DEPRESSION, CONSIDER SUBENDOCARDIAL INJURY [0.1+ mV ST DEPRESSION] Compared to ECG 09/26/2021 14:08:18 Myocardial infarct finding now present ST (T wave) deviation still present Electronically Signed On 09-27-2021 11:05:51 CDT by Ryan Allen M.D. [id number]
[2021-09-27 08:13] LABS: Bacillus cereus group Not Detected (NOT DETECT); Bacillus subtillis group Not Detected (NOT DETECT); Corynebacterium Not Detected (NOT DETECT); Cutibacterium acnes (P.acnes) Not Detected (NOT DETECT); Enterococcus Not Detected (NOT DETECT); Enterococcus faecalis Not Detected (NOT DETECT); Enterococcus faecium Not Detected (NOT DETECT); Lactobacillus species Not Detected (NOT DETECT); Listeria Not Detected (NOT DETECT); Listeria monocytogenes Not Detected (NOT DETECT); Micrococcus Not Detected (NOT DETECT); Pan Candida Not Detected (NOT DETECT); Pan Gram-Negative Not Detected (NOT DETECT); Staphylococcus epidermidis Detected (NOT DETECT); Staphylococcus lugdunensis Not Detected (NOT DETECT); Staphylococcus species Detected (NOT DETECT); Streptococcus agalactiae Not Detected (NOT DETECT); Streptococcus anginosus group Not Detected (NOT DETECT); Streptococcus pneumoniae Not Detected (NOT DETECT); Streptococcus pyogenes Not Detected (NOT DETECT); Streptococcus species Not Detected (NOT DETECT); mecA Not Detected (NOT DETECT); mecC Not Detected (NOT DETECT)
--- NOTE | 2021-09-27 08:48 | PM.PN ---
Subjective Subjective: Keenan reports he feels much better. No chest pain or shortness of breath. Denies any abdominal pain. Is getting hungry. Currently on clear liquids. Medications: Reviewed: Yes Vitals/I&O/Wt Last Vital Signs Temp 98.2 F 09/27/21 06:00 Pulse 111 H 09/27/21 07:00 Resp 19 H 09/27/21 07:00 BP 92/67 09/27/21 07:00 Pulse Ox 100 09/27/21 07:00 09/26/21 09/27/21 09/27/21 22:59 06:59 14:59 Intake Total 1750 / 3550 50 / 3600 Output Total 101 / 101 Balance 1750 / 3550 -51 / 3499 Weight last 48 hrs Weight 63.503 kg Weight 64.41 kg Physical Exam Narrative: General exam demonstrates a male in no apparent distress Neck is supple no lymphadenopathy or thyromegaly Cardiovascular tachycardic, no murmur. No S3 or S4 Lungs clear to auscultation bilaterally. No wheezing or crackles Abdomen is soft nontender positive bowel sounds. No obvious organomegaly Extremities no cyanosis clubbing or edema, cap refill brisk Skin no rash Neuro no focal deficits. Data : 09/27/21 02:52 09/27/21 02:52 Micro: Microbiology 09/26/21 08:18 Blood Culture - Preliminary Blood NEGATIVE TO DATE 09/26/21 08:05 Blood Culture - Preliminary Blood 09/26/21 14:19 Occult Blood (FIT) - Final Stool - Stool Aspirate A&P Assessment and plan (1) Anemia: Severe anemia, microcytic. I suspect this is been going on quite a while. Likely linked to concern of rectal mass. Severe anemia as cause complication of non-ST elevation myocardial infarction, hypotension, severe acidosis. Ultimately where he received 3 units of packed red blood cells. Hemoglobin this morning 10.3. Iron studies consistent with iron deficiency anemia Continue Protonix IV Secondary to concern of rectosigmoid mass, severe anemia, surgery consult will be obtained for possible direct visualization of mass, biopsies Status: Acute (2) Non-ST elevation NE (NSTEMI): This is likely caused by severe anemia on presentation. Continue statin. Aspirin, anticoagulation, nitrates, beta-hernesto all contraindicated with his hypotension and anemia with presumed blood loss. Echocardiogram demonstrates EF around 25% Cardiology consultation will be obtained, will need to coordinate with surgical services. Status: Acute (3) Hypotension: Likely secondary to his severe anemia. This is improved. He did require a small amount of norepinephrine, which she is on 2 mcg currently. Hopefully this can be tapered off. Fluids have now been discontinued as he appears euvolemic, and could have significant decompensation from heart failure should significant fluid still be administered with his EF of 25%. Status: Acute (4) Rectal mass: Concern of rectal mass noted in colon. Has underlying anemia, likely iron deficient Surgery consultation Status: Acute (5) D-dimer, elevated: Secondary to acute illness. Pulmonary embolism not suspected. Status: Acute (6) Pneumonia: Probable right lower lobe pneumonia, possible aspiration noted on admission. Zosyn IV, sputum culture, MRSA PCR pending Oxygen as needed Blood culture growing 1 out of 4 bottles gram-positive cocci. Although this is likely contaminant, will start vancomycin until further information is obtained by culture secondary to his severe presentation and hypotension. Status: Acute (7) Metabolic acidosis: Secondary to severe anemia and hypotension. This is improving Status: Acute Plan Elevated liver test, mild elevation of potassium, mild elevation of creatinine. This is all consistent with his severe hypotension on presentation, secondary to hypovolemic shock. Hopefully we will see correction of this throughout the day. Full code SCDs for DVT prophylaxis. Anticoagulation contraindicated secondary to severe anemia Attestations Medical Necessity Statement*: Needs continued hospitalization, secondary to acute non-ST elevation myocardial infarction, GI bleeding, severe anemia Critical Care Time: The high probability of a clinically significant, sudden or life threatening deterioration of the patient's [GI, pulmonary, cardiac system(s) required my full and direct attention, intervention and personal management. The critical care time is as shown. 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
[2021-09-27] MEDS: pantoprazole 40 mg SDV IVP ×2 (11:02→23:45)
[2021-09-27] MEDS: vancomycin 1,250 MG/250 ML PIGGYBACK 250 MG IV (11:02)
--- NOTE | 2021-09-27 11:22 | PM.CONSULT ---
Providers/Reason For Consult Consulting Physician/Specialty*: Javier Shankar MD Reason for Consult*: Abnormal CT scan findings of the sigmoid colon Requesting Physician: Dr. Lockwood Attending Physician: Kalpesh Lockwood MD Primary Care Provider: ABY Guallpa History of Present Illness History of Present Illness Chief Complaint: Blood in stool History of present illness: Mr.Patrick Yanelis Burroughs is a pleasant 75 year old male admitted to the hospitalist service with history of dizziness, shortness of breath and generalized fatigue. Patient came to the emergency department on 09/26/2021 denying any hematemesis or hematochezia. On initial evaluation patient was hypotensive and anemic and had an abnormal EKG. He was placed on IV fluid resuscitation and IV antibiotics were started empirically. General surgery was consulted based on the findings of the CT scan of the abdomen and pelvis that showed 1. Irregular wall thickening of rectum and rectosigmoid junction suspicious for underlying mass and less likely adherent fecal matter. Area measures up to 4 cm in diameter. 2. Moderate stool burden. Acute MS pending Cardiac workup. ? ? Review of Systems General: Reports: 10 or more systems reviewed and unremarkable except in HPI and below Medications/Allergies Home Medications Medication Instructions Recorded Confirmed Last Taken Type No Known Home Medications 09/01/20 09/26/21 Unknown History Allergies Allergy/AdvReac Type Severity Reaction Status Date / Time No Known Allergies Allergy Verified 09/26/21 07:55 Current Medications Generic Name Dose Route Start Last Admin Trade Name Freq PRN Reason Stop Dose Admin Atorvastatin Calcium 40 mg 09/26/21 21:00 09/26/21 20:12 Atorvastatin 40 Mg Tablet PO 40 mg BEDTIME TERESA Administration Piperacillin Sod/Tazobactam 50 mls @ 12.5 mls/hr 09/26/21 15:00 09/27/21 10:59 Sod 3.375 gm/ Sodium Chloride IV Infused Q8H TERESA Infusion Protocol Norepinephrine Bitartrate 4 mg 254 mls @ 0 mls/hr 09/26/21 16:30 09/27/21 00:05 / Dextrose IV 2 mcg/min .Q0M PRN 7.62 mls/hr hypotension Administration Protocol Per Protocol Vancomycin/PEG/NADA/Lysine/Water 1,250 mg in 250 mls @ 250 mls/hr 09/27/21 10:00 09/27/21 11:02 Vancocin IV 250 mls/hr Q24H TERESA Administration Pantoprazole Sodium 40 mg 09/26/21 11:45 09/27/21 11:02 Pantoprazole 40 Mg Sdv IVP 40 mg Q12H TERESA Administration PFSH Acute PFSH: Surgical History History of hemorrhoidectomy Family History Grandmother Diabetes Social History Smoking and tobacco status: former smoker Second hand smoke exposure: No Smoking risk assessment/counseling performed?: No Alcohol intake: never Desire information about alcohol rehabilitation?: No Counseling given: No Desire information about substance/drug rehabilitation?: No Counseling given: No Adopted: No Caregiver/support person: No Lives independently: Yes Household members: spouse Housing: House Marital status: Number of children: 0 service: Yes status: Retired Current occupational status: retired History of recent travel: No Vitals/I&O/Wt Last Vital Signs Temp 98.2 F 09/27/21 06:00 Pulse 111 H 09/27/21 10:00 Resp 16 09/27/21 10:00 BP 106/77 09/27/21 10:00 Pulse Ox 99 09/27/21 09:00 09/26/21 09/27/21 09/27/21 22:59 06:59 14:59 Intake Total 1750 / 3550 50 / 3600 50 / 50 Output Total 101 / 101 200 / 200 Balance 1750 / 3550 -51 / 3499 -150 / -150 Weight last 48 hrs Weight 140 lb Weight 142 lb Physical Exam Const: COMMON NORMALS: no acute distress and patient oriented x3 GENERAL APPEARANCE: cooperative ORIENTATION/CONSCIOUSNESS: Yes awake, Yes oriented to person, Yes oriented to place and Yes oriented to time HENMT: COMMON NORMALS: normocephalic HEAD & SCALP: normocephalic Eye: COMMON NORMALS: Equal, round and reactive pupils present and no scleral icterus PUPIL: Yes Equal, round and reactive pupils present Lymph: LYMPHATIC: no lymphadenopathy noted Chest: COMMONS NORMALS: normal inspection of the chest Resp: COMMON NORMALS: normal respiratory effort and clear to auscultation bilaterally AUSCULTATION: clear to auscultation bilaterally Cardio: COMMON NORMALS: S1 normal heart sound present and S2 normal heart sound present; negative for No murmurs present (Cardio) HEART SOUNDS: S1 normal heart sound present and S2 normal heart sound present GI: COMMON NORMALS: Soft to palpation; negative for No hepatosplenomegaly present INSPECTION: Yes normal to inspection and No Laceration(s) present (GI) PALPATION: Yes Soft to palpation, No Firmness to palpation present (GI), No Tenderness to palpation present (GI), No Guarding due to palpation present (GI), No Rigid due to palpation and No No hepatosplenomegaly present RECTAL EXAM: Yes visual inspection normal, Yes normal sphincter tone, No Fistula present (GI), No Laceration(s) present (GI), No Excoriation present (GI), No Anal fissure(s) present and Yes mass (Circumferential anal growth about 5 cm or so from the anal sphincter) intraluminal (Soft brown stools) Details: fixed and firm; Negative for mobile, tender or fluctuant Neuro: COMMON NORMALS: patient oriented x3 SENSORIUM/ORIENTATION: Yes oriented to person, Yes oriented to place and Yes oriented to time Psych: COMMON NORMALS: mental status grossly normal Skin: COMMON NORMALS: no rashes or lesions noted GENERAL SKIN EXAM: no rashes or lesions noted Data : 09/27/21 16:27 09/27/21 16:27 Micro: Microbiology 09/26/21 08:05 Blood Culture - Preliminary Blood Staphylococcus epidermidis 09/26/21 08:18 Blood Culture - Preliminary Blood NEGATIVE TO DATE 09/26/21 14:19 Occult Blood (FIT) - Final Stool - Stool Aspirate A&P Assessment and plan (1) Anemia: After history taking physical examination and reviewing the chart and images with my personal interpretation. Patient would likely benefit from diagnostic EGD and colonoscopy/yet the risks benefits equation likely the patient would require further work-up for his cardiac condition prior to any invasive procedure. We will continue coordinating care with cardiology and hospitalist services Thank you for consulting general surgery to participate taking care Mr. 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
--- NOTE | 2021-09-27 13:30 | PM.CONSULT ---
Providers/Reason For Consult Consulting Physician/Specialty*: MANUELA Mederos MD/cardiology Reason for Consult*: Patient with elevated troponin T, abnormal EKG and LV dysfunction Requesting Physician: Dr. Lockwood Attending Physician: Kalpesh Lockwood MD Primary Care Provider: Nelida Gunn, CONE OPERATOR-C History of Present Illness History of Present Illness Keenan Burroughs is a 75 year old male with a remote history of alcohol abuse and smoking abuse, presenting with progressive shortness of breath and weight loss. On the day of admission, he was getting acutely short of breath with some chest discomfort. He never had any chest pain. He was found to be in heart failure with elevated troponin T suggestive of a non-ST elevation myocardial infarction. He was found to have diffuse ST-T changes in the EKG. the echocardiogram revealed diffuse hypokinesia of the left ventricle with an ejection fraction of 25%. Severe mitral regurgitation. No significant pericardial effusion. Patient also was found to have evidence of lower GI bleed and possible malignancy. Severe anemia with a hemoglobin of around 5. He was given blood transfusion. The hemoglobin is currently around 10. He denies any chest pain or chest tightness. Has a baseline shortness of breath with activities. No fever, chills or cough. Cardiology consult is requested for further cardiac evaluation and recommendations. This patient has no previous history for coronary artery disease, myocardial infarction or congestive heart failure. His father had myocardial infarction in his 70s. Mother also had coronary disease diagnosed in her 60s. He used to smoke 1 to 2 pack a day for 20+ years. Quit 17 years ago. He also used to be an alcoholic, quit drinking 17 years ago. No other substance abuse. He has not been to a physician for the last many years. Review of Systems Narrative: CONSTITUTIONAL: No fever or chills. EYES: No blurring of vision or other visual disturbances lately. ENT: No hoarseness of voice, auditory disturbances or sore throat. CARDIOVASCULAR: As mentioned above. RESPIRATORY: Progressive shortness of breath GASTROINTESTINAL: Lower GI bleed as mentioned above GENITOURINARY: No dysuria or hematuria. INTEGUMENTARY: No skin rashes or history of skin cancer. NEURO: No transient ischemic attacks or amaurosis. PSYCHIATRIC: No history of psychosis or major depression. HEMATOLOGIC: Severe anemia as mentioned above ENDOCRINE: No history of polyuria or polydipsia. MUSCULOSKELETAL: No recent joint pain or swelling. ALLERGY/IMMUNOLOGY: As mentioned above. Medications/Allergies Home Medications Medication Instructions Recorded Confirmed Last Taken Type No Known Home Medications 09/01/20 09/26/21 Unknown History Allergies Allergy/AdvReac Type Severity Reaction Status Date / Time No Known Allergies Allergy Verified 09/26/21 07:55 Current Medications Generic Name Dose Route Start Last Admin Trade Name Freq PRN Reason Stop Dose Admin Atorvastatin Calcium 40 mg 09/26/21 21:00 09/26/21 20:12 Atorvastatin 40 Mg Tablet PO 40 mg BEDTIME TERESA Administration Piperacillin Sod/Tazobactam 50 mls @ 12.5 mls/hr 09/26/21 15:00 09/27/21 10:59 Sod 3.375 gm/ Sodium Chloride IV Infused Q8H TERESA Infusion Protocol Norepinephrine Bitartrate 4 mg 254 mls @ 0 mls/hr 09/26/21 16:30 09/27/21 00:05 / Dextrose IV 2 mcg/min .Q0M PRN 7.62 mls/hr hypotension Administration Protocol Per Protocol Vancomycin/PEG/NADA/Lysine/Water 1,250 mg in 250 mls @ 250 mls/hr 09/27/21 10:00 09/27/21 13:11 Vancocin IV Infused Q24H TERESA Infusion Pantoprazole Sodium 40 mg 09/26/21 11:45 09/27/21 11:02 Pantoprazole 40 Mg Sdv IVP 40 mg Q12H TERESA Administration PFSH Acute PFSH: Surgical History History of hemorrhoidectomy Family History Grandmother Diabetes Social History Smoking and tobacco status: former smoker Second hand smoke exposure: No Smoking risk assessment/counseling performed?: No Alcohol intake: never Desire information about alcohol rehabilitation?: No Counseling given: No Desire information about substance/drug rehabilitation?: No Counseling given: No Adopted: No Caregiver/support person: No Lives independently: Yes Household members: spouse Housing: House Marital status: Number of children: 0 service: Yes status: Retired Current occupational status: retired History of recent travel: No Vitals/I&O/Wt Last Vital Signs Temp 98.2 F 09/27/21 06:00 Pulse 108 H 09/27/21 10:00 Resp 16 09/27/21 10:00 BP 106/77 09/27/21 10:00 Pulse Ox 100 09/27/21 10:00 09/26/21 09/27/21 09/27/21 22:59 06:59 14:59 Intake Total 1750 / 3550 50 / 3600 300 / 300 Output Total 101 / 101 200 / 200 Balance 1750 / 3550 -51 / 3499 100 / 100 Weight last 48 hrs Weight 140 lb Weight 142 lb Physical Exam Narrative: GENERAL: The patient is alert and oriented times three. Not in any acute distress. Moderate pallor with the generalized emaciation HEENT: Moderate pallor with no icterus or lymphadenopathy. The pupils are reactant to light. Oral cavity: There are no mucous membrane lesions. Funduscopic examination: The disk margins appear to be sharp with no exudates or hemorrhages. NECK: Trachea appears to be central. No masses noted. No JVD or thyromegaly appreciated. No carotid bruit. RESPIRATORY: Chest is symmetrical. No intercostals muscle retraction or any accessory muscle activation. There is no chest wall tenderness. Breath sounds are heard bilaterally. No rales or rhonchi heard. No evidence of any consolidation. BREASTS: Deferred. HEART: The PMI is in the 5th left intercostals space just inside the midclavicular line. No palpable precordial events. S1 and S2 are normal. No S3 or S4 heard. No pericardial rub or any click heard. ABDOMEN: No vessel pulsations or distention. No tenderness. No organomegaly appreciated. No abdominal bruit. Bowel sounds are normally heard. : Deferred. RECTAL: Deferred. LYMPHATIC: No lymphadenopathy noted in the neck or groin. EXTREMITIES: No edema or cyanosis. No clubbing. The pulses are symmetrical bilaterally. The radial, femoral, dorsalis pedis and the posterior tibial pulses are palpated and found to be in good volume and amplitude. MUSCULOSKELETAL: No acute joint deformities or swelling. SKIN: There are no significant scars or skin rash noted. NEUROPSYCHIATRIC: The patient is alert and oriented x3. Appears to be in a good mood. The higher functions are grossly within normal limits. No tremors or rigidity noted. Data : 09/27/21 02:52 09/27/21 02:52 Other Labs: Laboratory Last Values WBC 20.2 10^3/uL (4.0-10.0) H 09/27/21 02:52 RBC 4.87 10^6/uL (4.1-5.3) 09/27/21 02:52 Hgb 10.3 g/dL (11.7-16.6) L 09/27/21 02:52 Hct 34.0 % (42.0-52.0) L 09/27/21 02:52 MCV 69.8 fl (80-94) L 09/27/21 02:52 MCH 21.1 pg (28.0-34.0) L D 09/27/21 02:52 MCHC 30.3 g/dL (30.0-36.0) D 09/27/21 02:52 RDW 22.7 % (12.1-15.1) H 09/27/21 02:52 Plt Count 502 10^3/cmm (130-400) H 09/27/21 02:52 MPV 9.7 fL (7.4-10.4) 09/27/21 02:52 Neut % (Auto) 86.1 % 09/27/21 02:52 Lymph % (Auto) 3.5 % 09/27/21 02:52 Phillips % (Auto) 9.7 % 09/27/21 02:52 Eos % (Auto) 0.0 % 09/27/21 02:52 Baso % (Auto) 0.1 % 09/27/21 02:52 Neut # (Auto) 17.40 10^3/uL (1.8-7.7) H 09/27/21 02:52 Lymph # (Auto) 0.7 10^3/uL (0.8-4.8) L 09/27/21 02:52 Phillips # (Auto) 2.0 10^3/uL (0.2-0.9) H 09/27/21 02:52 Eos # (Auto) 0.0 10^3/uL (0.0-0.8) 09/27/21 02:52 Baso # (Auto) 0.0 10^3/uL (0.0-0.1) 09/27/21 02:52 Nucleated RBC % (auto) 1.2 % 09/27/21 02:52 Nucleated RBCs # 0.2 /100WBC 09/27/21 02:52 D-Dimer 0.97 ug/mIFEU (0-0.59) H 09/26/21 05:35 Specimen Type Arterial 09/26/21 06:08 Sample Site Radial, left 09/26/21 06:08 ABG pH 7.36 (7.35-7.45) 09/26/21 06:08 ABG pCO2 25.5 mmHg (35-45) L 09/26/21 06:08 ABG pO2 166.0 mmHg (80.0-100.0) H 09/26/21 06:08 ABG HCO3 14.3 mmol/L (22-26) L 09/26/21 06:08 ABG Base Excess -10.4 mmol/L (-2.0-2.0) L 09/26/21 06:08 Ted Test Pos 09/26/21 06:08 Hematocrit 17.2 % (42-52) L 09/26/21 06:08 O2 Delivery Device Nc 09/26/21 06:08 O2 Liters/Min 3.0 % 09/26/21 06:08 Junior Network Engineer ID Hensa 09/26/21 06:08 Sodium 141 mmol/L (136-145) 09/27/21 02:52 Potassium 5.2 mmol/L (3.5-5.1) H 09/27/21 02:52 Chloride 107 mmol/L (98-107) 09/27/21 02:52 Carbon Dioxide 16 mmol/L (22-29) L 09/27/21 02:52 Anion Gap 23.2 (5-19) H 09/27/21 02:52 BUN 42 mg/dL (8-23) H 09/27/21 02:52 Creatinine 1.5 mg/dL (0.7-1.2) H 09/27/21 02:52 GFR Calculation Not Reportable 09/27/21 02:52 Glucose 102 mg/dL (65-115) 09/27/21 02:52 POC Glucose 262 mg/dL (70-110) H 09/26/21 05:35 Calculated Osmolality 303 mOsm/kg (285-295) H 09/27/21 02:52 Lactic Acid 8.1 mmol/L (0.5-2.2) H* 09/26/21 08:05 Lactic Acid (Sepsis) 6.2 mmol/L (0.5-2.2) H* 09/26/21 11:14 Calcium 8.6 mg/dL (8.5-10.5) 09/27/21 02:52 Magnesium 2.3 mg/dL (1.7-2.3) 09/27/21 02:52 Magnesium Cancelled 09/27/21 02:52 Iron 28 ug/dL (59-158) L 09/26/21 11:14 TIBC 350 mcg/dl 09/26/21 11:14 % Saturation 8.0 % (20-50) L 09/26/21 11:14 Unsat Iron Binding 322 ug/dL (112-347) 09/26/21 11:14 Ferritin 8 ng/mL (30-400) L 09/26/21 11:14 Total Bilirubin 2.1 mg/dL (0.15-1.2) H 09/27/21 02:52 AST 236 U/L (0-40) H 09/27/21 02:52 ALT 157 U/L (0-41) H 09/27/21 02:52 Alkaline Phosphatase 128 IU/L (40-130) 09/27/21 02:52 Troponin T Baseline 447 ng/L (0-15) H* 09/26/21 05:35 Troponin T 120 Minute 440.4 ng/L (0-15) H 09/26/21 07:18 Delta Troponin T -6.6 ABS# (0-10) L 09/26/21 07:18 Troponin T Hi Sens 6Hr 889.1 ng/L (0-15) H 09/26/21 11:14 Troponin T Hi Sens 6Hr Delta 442.1 ng/L (0-12) H* 09/26/21 11:14 NT-Pro-B Natriuret Pep 03387 pg/mL (0-125) H 09/26/21 05:35 Total Protein 5.7 g/dL (6.6-8.7) L 09/27/21 02:52 Albumin 3.1 g/dL (3.5-5.2) L 09/27/21 02:52 Globulin 2.6 g/dL (1.3-4.6) 09/27/21 02:52 Triglycerides 74 mg/dL (0-150) 09/27/21 02:52 Triglycerides Cancelled 09/27/21 02:52 Cholesterol 101 mg/dL (0-200) 09/27/21 02:52 Cholesterol Cancelled 09/27/21 02:52 LDL Cholesterol, Calc 53 mg/dL (50-129) 09/27/21 02:52 LDL Cholesterol, Calc Cancelled 09/27/21 02:52 HDL Cholesterol 33 mg/dL (60-100) L 09/27/21 02:52 HDL Cholesterol Cancelled 09/27/21 02:52 LDL/HDL Ratio 1.61 RATIO (0.00-3.22) 09/27/21 02:52 LDL/HDL Ratio Cancelled 09/27/21 02:52 Cholesterol/HDL Ratio 3.06 mg/dL (1.0-5.00) 09/27/21 02:52 Cholesterol/HDL Ratio Cancelled 09/27/21 02:52 TSH 3.66 uIU/mL (0.27-4.20) 09/26/21 11:14 Urine Color Yellow (Yellow) 09/27/21 06:10 Urine Appearance Clear (CLEAR) 09/27/21 06:10 Urine pH 5 (5-7) 09/27/21 06:10 Ur Specific [place] 1.015 (1.005-1.030) 09/27/21 06:10 Urine Protein 1+ (Negative) H 09/27/21 06:10 Urine Glucose (UA) Norm (Normal) 09/27/21 06:10 Urine Ketones 1+ (Negative) H 09/27/21 06:10 Urine Blood 2+ (Negative) H 09/27/21 06:10 Urine Nitrate Negative (Negative) 09/27/21 06:10 Urine Bilirubin Neg (Negative) 09/27/21 06:10 Urine Urobilinogen Norm mg/dL (Negative) 09/27/21 06:10 Ur Leukocyte Esterase Negative (Negative) 09/27/21 06:10 Urine RBC Rare /hpf (0-2) 09/27/21 06:10 Urine WBC Rare /hpf (0-5) 09/27/21 06:10 Ur Squamous Epith Cells None /hpf (0-5) 09/27/21 06:10 Amorphous Sediment Not Reportable 09/27/21 06:10 Urine Bacteria Trace /hpf (NONE) 09/27/21 06:10 Blood Type O Positive 09/26/21 08:05 Rho(D) Type Positive 09/26/21 08:05 Antibody Screen Negative 09/26/21 08:05 Crossmatch See Detail 09/26/21 08:05 Micro: Microbiology 09/26/21 08:05 Blood Culture - Preliminary Blood Staphylococcus epidermidis 09/26/21 08:18 Blood Culture - Preliminary Blood NEGATIVE TO DATE 09/26/21 14:19 Occult Blood (FIT) - Final Stool - Stool Aspirate Echo: My impression: Echocardiogram on 09/26/2021 The ventricle is normal in size to slightly enlarged.? There is ?severe global hypokinesis with near akinesis of the anterior ?wall, septum and apex.? This would suggest an LAD lesion however ?with the tachycardia the specifics of the wall motion ?disturbances are difficult.? The overall ejection fraction is ?about 25%.? Grade 2 diastolic dysfunction. ?Mildly increased right atrial size. ?Moderately increased left atrial size. ?Structurally normal mitral valve. Severe mitral valve ?regurgitation. ?Trivial non-hemodynamically significant pericardial effusion.? ?Large pleural effusion. ?There are no prior echocardiogram studies to compare. EKG 1: My Interpretation: The EKG showed a sinus tachycardia with a diffuse nonspecific ST-T changes. Possible old septal AR. EKG computer-generated impression: Chest X-Ray 09/26/21 05:18 IMPRESSION: 1. Hyperinflation with prominent interstitial markings suggesting COPD changes. 2. No acute cardiopulmonary process. Chest/Abdomen/Pelvis CT 09/26/21 06:05 IMPRESSION: 1. Small bilateral pleural effusions with compressive atelectasis. 2. Moderate centrilobular emphysematous changes are present. 3. Bibasilar interstitial thickening favors mild interstitial edema. 4. No pulmonary artery embolism identified. 5. Minimal lateral right basilar tree in bud, which generally indicate pneumonia/aspiration and/or possibly atypical pneumonia. 6. Irregular area of pleural based opacity posteriorly within the left upper lobe felt to represent an area of scarring. IMPRESSION: 1. Irregular wall thickening of rectum and rectosigmoid junction suspicious for underlying mass and less likely adherent fecal matter. Area measures up to 4 cm in diameter. 2. Moderate stool burden. COMMENTS: Consistent with the [employer]'s Incidental Findings Committee white paper (J Am Naila Radiol 2018): Any incidental renal lesion less than 1 cm or classified as too small to characterize, or any incidental cystic renal lesion characterized as simple-appearing, is likely benign. No follow-up imaging is recommended for these lesions per consensus recommendations based on imaging criteria. A&P Assessment and plan (1) Non-ST elevation AR (NSTEMI): Patient's clinical features are consistent with an acute non-ST elevation myocardial infarction complicated with congestive heart failure. It is very possible that the patient may have underlying severe coronary artery disease. Currently he is stable and asymptomatic. His blood pressure is soft. He requires an early cardiac catheterization for further management of his condition. Patient is agreeable to go ahead with the procedure. Also discussed with Dr. Shankar.since there is no active GI bleed, it was thought to be appropriate to go ahead with the angiogram at this time. Because of the patient's abnormal kidney function, he carries a high risk for contrast-induced nephropathy and other complications. This was discussed with the patient detail which is understood well. Since her hemoglobin is stable, I may go ahead and give aspirin 325 mg p.o. now Status: Acute (2) Ischemic cardiomyopathy: Patient's ejection fraction was 25% by echocardiogram. Patient is at high risk for arrhythmia. He needs to be closely monitored on telemetry. Status: Acute (3) Severe anemia: Patient had blood transfusion. Current hemoglobin is around 10. We will be repeating this in the morning. Status: Acute (4) Dyslipidemia: Patient was started on statin. Status: Acute (5) Severe mitral regurgitation: The etiology is not clear. Patient may require a KALLI, to better evaluate the mitral regurgitation. Status: Acute (6) Rectal mass: This need to be further evaluated. Status: Acute (7) Stage III chronic kidney disease: Better this is acute on chronic is not known.. Previous BMP to compare with. Status: Acute (8) Neutrophilic leukocytosis: Signs of infection is not known at this point. Patient is on multiple antibiotics. Status: Acute Plan Patient's overall status is somewhat unstable at this point. Based on his coronary status, further recommendations will be made. Thank you for the opportunity to evaluate this patient and make these recommendations Consult Attestations Medical Necessity Statement: Patient requires continued hospital stay for close monitoring and further management Coding Level of Care Code Acute Tennis Ball Cover Cementer for Chg Fwd History Detailed Exam Detailed Medical Decision Making High Complexity Diagnoses Non-ST elevation AR (NSTEMI) I21.4 Ischemic cardiomyopathy I25.5 Severe anemia D64.9 Dyslipidemia E78.5 Severe mitral regurgitation I34.0 Rectal mass K62.89 Stage III chronic kidney disease N18.30 Neutrophilic leukocytosis D72.9 Time Spent (min) 65
[2021-09-27 16:42] LABS: Basophils % 0.2 %; Hemoglobin 10.7 g/dL (11.7-16.6); Lymphocytes # 1.1 10^3/uL (0.8-4.8); Lymphocytes % 4.7 %; Mean Corpuscular HGB Conc 30.6 g/dL (30.0-36.0); Mean Corpuscular Hemoglobin 21.4 pg (28.0-34.0); Mean Corpuscular Volume 70.1 fl (80-94); Mean Platelet Volume 9.6 fL (7.4-10.4); Monocytes # 2.1 10^3/uL (0.2-0.9); Monocytes % 9.2 %; Nucleated Red Blood Cells # 0.2 /100WBC; Nucleated Red Blood Cells % 0.9 %; Platelet Count 593 10^3/cmm (130-400); Red Blood Count 4.99 10^6/uL (4.1-5.3); Red Cell Distribution Width 23.2 % (12.1-15.1); White Blood Count 22.8 10^3/uL (4.0-10.0)
[2021-09-27 17:17] LABS: Alanine Aminotransferase 134 U/L (0-41); Albumin Level 2.8 g/dL (3.5-5.2); Alkaline Phosphatase 114 IU/L (40-130); Anion Gap 20.6 (5-19); Aspartate Amino Transferase 147 U/L (0-40); Blood Urea Nitrogen 40 mg/dL (8-23); Calcium 8.3 mg/dL (8.5-10.5); Carbon Dioxide 18 mmol/L (22-29); Chloride 106 mmol/L (98-107); Creatinine Clr Calc Pharmacy 54.2177; Globulin 3.4 g/dL (1.3-4.6); Glucose 158 mg/dL (65-115); Osmolality Calculated 303 mOsm/kg (285-295); Potassium 4.6 mmol/L (3.5-5.1); Sodium 140 mmol/L (136-145); Total Bilirubin 1.3 mg/dL (0.15-1.2); Total Protein 6.2 g/dL (6.6-8.7)
[2021-09-27] MEDS: aspirin 325 mg EC Tablet PO (18:35)
[2021-09-27] MEDS: atorvastatin 40 mg Tablet PO (21:44)
[2021-09-28] VITALS (12 sets, daily range): BP systolic 90–118; BP diastolic 67–78; PULSE 100–115; RESP 15–22; O2SAT 95–98
[2021-09-28 04:57] LABS: Alanine Aminotransferase 140 U/L (0-41); Albumin Level 3.2 g/dL (3.5-5.2); Alkaline Phosphatase 134 IU/L (40-130); Blood Urea Nitrogen 36 mg/dL (8-23); Calcium 8.4 mg/dL (8.5-10.5); Carbon Dioxide 16 mmol/L (22-29); Chloride 106 mmol/L (98-107); Globulin 2.6 g/dL (1.3-4.6); Glucose 117 mg/dL (65-115); Magnesium 2.2 mg/dL (1.7-2.3); Osmolality Calculated 293 mOsm/kg (285-295); Sodium 137 mmol/L (136-145); Total Bilirubin 1.3 mg/dL (0.15-1.2); Total Protein 5.8 g/dL (6.6-8.7)
[2021-09-28 05:16] LABS: Anion Gap 20.2 (5-19); Aspartate Amino Transferase 126 U/L (0-40); Potassium 5.2 mmol/L (3.5-5.1)
--- NOTE | 2021-09-28 05:48 | XACV_ITS ---
Exam Room: [facility] Ht: 170 cm Wt: 64 kg BSA: 1.73 m2 Gender: Male : 1945 Exam Priority: Routine Procedure(s): Procedure Description: Diagnostic procedure Procedure Description: Left Heart Catheterization Procedure Description: Coronary Angiography Gatito BAEZA; Diagnostic Cath Status: Urgent Diagnostic Findings * The left main is a medium caliber vessel with a minimal intimal irregularities. * The left artery descending artery is a medium caliber vessel which appears to wrap around the LV apex minimally. The proximal to the mid LAD was found to have extensive calcification with eccentric narrowing of 60 to 80%. Near to the ostium of the third obtuse marginal branch, there was a filling defect suggesting calcium versus a napkin ring type of lesion. With Doppler features consistent with a less than 50% stenosis distal LAD was found to have minimal intimal irregularities. The septal perforators were found to have moderate ostial stenosis.. * The left circumflex artery was found to have moderate irregular narrowing at the mid segment. No significant stenotic lesions were noted. The vessel is nondominant. * The right coronary artery is a medium caliber dominant vessel. Proximal segment of the artery was found to have around 50 to 60% tapering narrowing. Right after this, there was a long filling defect. The artery appears to be totally occluded after the first RV branch. Grade 2-3 [id number] collaterals were noted during the left coronary injection. Conclusions 1. 75-year-old white male presenting with acute worsening of shortness of breath. Was found to have features of non-ST elevation myocardial infarction. Echocardiogram revealed LV ejection fraction of 25%. Possibly severe mitral regurgitation. For further evaluation of his coronary status, a cardiac catheterization was recommended. Patient underwent left heart catheterization with left and right coronary angiogram today. The findings are as follows. 2. High-grade lesion in the proximal to mid LAD with extensive calcification. Moderate disease in the mid circumflex artery. Total occlusion of the right coronary artery right after the RV branch. Possible thrombus in the proximal segment of the right coronary artery with moderate disease. 3. The cardiac catheterization data 4. was reviewed and discussed with the Dr. Allen. It was thought to be appropriate to get a surgical consult on this patient. If he is not a surgical candidate,Dr. Allen will consider PCI of these lesions .. Diagnostic RX Recommendation: PCI w/o planned CABG LV EDP: 27 mmHg Left Ventriculography Findings: * LV gram was not performed because of was not performed because of the acute kidney injury. LVEDP was 27 mmHg. Pressures Phase:Rest AO : 89 / 63 ( 75 ) @ 9:24:00 AM 92 / 61 ( 75 ) @ 9:24:00 AM LV : 108 / 8 / 35 @ 9:24:00 AM 108 / 9 / 31 @ 9:24:00 AM Valves Phase:DefaultPhase AV : 20.0 @ 8:47:52 AM AV Mean Gradient: 16.0 @ 8:47:52 AM Clinical Evaluation EBL: 5mL-10mL Procedural Details Procedure Consent Obtained. Admit Source: In Patient. Pre-Procedure Time Out. Identified patient by full name and date of as verbalized by the patient/guarantor. Does the consent match the physician's order: Yes. Accurate & Complete Informed Consent: Yes. Inpatient/Outpatient History & Physical on Chart: Yes. If H&P is completed, is and addenduem needed: N/A; If yes, is the addendum complete: N/A. Visualize and Verify Site with Patient/Guarantor: N/A. Relevant Radiology Images available: N/A. Pre-op teaching completed and patient verbalized understanding. The risks, benefits, and alternatives of sedation and/or procedure were discussed by physician. The patient agrees to continue. Procedure started. HA Clinical Fraility Score: 4: Vulnerable. Radiologic Technologist Indications: Cardiomyopathy, NSTEMI. Chest Pain Symptom Assessment: Atypical Angina. Correct patient, site and procedure confirmed by cath team. Current diagnosis: CHF. PERRLA. Strong, equal hand door cutter bilaterally. Lungs clear x 5 lobes. IV Site on Arrival: 18 gauge in the right forearm. IV Fluids: 0.9% NaCl at KVO. 100 mL infused prior to medical laboratory assistant. Pre Procedural Pulses: right radial was 1+. Pre Procedural Pulses: bilateral dorsalis pedis was 1+. Oxygen started at 2liters/min via nasal canula. right groin was prepped with chloroprep then draped in the usual sterile fashion. right radial was prepped with chloroprep then draped in the usual sterile fashion. Physician notified. Baseline sample Acquired. HR: 115 BPM. Physician arrived. Physician scrubbed in. Immediate Pre-Procedure Time Out. Correct Patient: Yes; Correct Procedure: Yes; Correct Site: Yes; Correct Patient Position: Yes; Correct Supplies: Yes; Dried Flammable Prep: Yes; Blood Products Available: N/A;. Lidocaine 1% infiltrated to the right radial. Arterial access obtained. A 5 lao Mitch catheter in over wire. Multiple views taken of left coronary artery. Catheter redirected to the RCA. Multiple views taken of right coronary artery. Catheter placed in the ventricle for LV. EDP Sample taken: LV 108/8,35; HR: 112 BPM; SpO2: 98%. Pullback taken: LV 108/9,31; AO 89/63(75); Mean: 16mmHg, Peak to Peak: 20mmHg, SEP: 16sec/min; HR: 112 BPM; SpO2: 98%. Catheter out. Dr Allen reviewing films. Dr Francois consulted over the phone at this time. A Suture was successful obtaining hemostatsis at the Right Radial artery insertion site. Physician scrubbed out. Post Procedure: Pulses reassessed and unchanged. PERRLA. Strong, equal hand door cutter bilaterally. No VTE prophylaxis required. Medication's Wasted: Nitro = 50 mg. Medication's Wasted: Lidocaine 1% = 8 mL. Total IV fluids: 153 mL. Post-op diagnosis: Obstructive CAD. Medication's Wasted: Other = Fentanyl 100 mcg. Complications: none. Estimated blood loss: 5mL-10mL. Responsiveness - Normal response to verbal stimuli; alert and oriented, PERRLA. Airway - Unaffected, no intervention required; spontaneous ventilation. Circulation: W/N/L, pulses unchanged. Nausea/Vomiting: No. Procedure completed. Patient transferred by bed to ICU. Vital chart was stopped. Access Site Site: Right Radial artery Sheath Size: 6 Fr Hemostasis Method: Suture Hemostasis Success: Successful Procedure Medications Start: 8:09 AM Stop: 8:09 AM Medication: Versed Amount: 1 mg Route: I.V. Start: 8:14 AM Stop: 8:14 AM Medication: Verapamil Amount: 5 mg Route: I.A. Start: 8:19 AM Stop: 8:19 AM Medication: Versed Amount: 1 mg Route: I.V. Start: 8:15 AM Stop: 8:15 AM Medication: Heparin Amount: 5000 units Route: I.V. I, the attending physician, have reviewed and verified all procedure medications. Yes, all medications given per verbal order History/Risk Factors Hypertension: No Dyslipidemia: Yes Peripheral Arterial Disease (PAD): No Myocardial Infarction (NM): No Obesity: No Renal Disease: No Tobacco Use: Former Prior Interventions PCI: No CABG: No Valve Surgery: No Report Signatures Finalized by Dr Birdie Mederos MD [facility] on 09/28/2021 01:55 PM
[2021-09-28] MEDS: sodium chloride 0.9% 1,000 ML 50 ML IV (05:50)
[2021-09-28] MEDS: diphenhydrAMINE 50 mg Capsule PO (05:50)
[2021-09-28 06:30] LABS: Basophils % 0.2 %; Hemoglobin 10.5 g/dL (11.7-16.6); Lymphocytes # 0.8 10^3/uL (0.8-4.8); Lymphocytes % 4.3 %; Mean Corpuscular Hemoglobin 21.3 pg (28.0-34.0); Mean Platelet Volume 10.2 fL (7.4-10.4); Monocytes # 1.8 10^3/uL (0.2-0.9); Monocytes % 9.3 %; Neutrophils # 16.48 10^3/uL (1.8-7.7); Neutrophils % 85.6 %; Nucleated Red Blood Cells # 0.1 /100WBC; Nucleated Red Blood Cells % 0.6 %; Platelet Count 525 10^3/cmm (130-400); Red Blood Count 4.93 10^6/uL (4.1-5.3); Red Cell Distribution Width 23.8 % (12.1-15.1); White Blood Count 19.3 10^3/uL (4.0-10.0)
--- NOTE | 2021-09-28 06:37 | PM.PN ---
Subjective Subjective: The patient is feeling okay. Denies any chest pain or chest tightness. No unusual shortness of breath. He had a CBC and CMP drawn this morning. Apparently the CBC got hemolyzed. This is being redrawn now. Telemetry shows sinus rhythm. Blood pressure is around 120/70. Heart rate is 105/min. Patient is afebrile. No other specific complaints. Medications: Medication Review Details: Current Medications Acetaminophen (Acetaminophen 325 Mg Tablet) 650 mg PO Q6H PRN PRN Reason: MILD PAIN Atorvastatin Calcium (Atorvastatin 40 Mg Tablet) 40 mg PO BEDTIME TERESA Last Admin: 09/27/21 21:44 Dose: 40 mg Documented by: Piperacillin Sod/Tazobactam (Sod 3.375 gm/ Sodium Chloride) 50 mls @ 12.5 mls/hr IV Q8H TERESA; Protocol Last Infusion: 09/28/21 03:52 Dose: Infused Documented by: Norepinephrine Bitartrate 4 mg (/ Dextrose) 254 mls @ 0 mls/hr IV .Q0M PRN; Protocol PRN Reason: hypotension Last Admin: 09/27/21 00:05 Dose: 2 mcg/min, 7.62 mls/hr Documented by: Sodium Chloride (Sodium Chloride 0.9%) 1,000 mls @ 50 mls/hr IV .Q20H ONE Stop: 09/29/21 01:59 Last Admin: 09/28/21 05:50 Dose: 50 mls/hr Documented by: Ondansetron HCl (Ondansetron 2 Mg/Ml Sdv 2 Ml) 4 mg IVP Q6H PRN PRN Reason: NAUSEA AND VOMITING Pantoprazole Sodium (Pantoprazole 40 Mg Sdv) 40 mg IVP Q12H [facility] Last Admin: 09/27/21 23:45 Dose: 40 mg Documented by: Vitals/I&O/Wt Last Vital Signs Temp 98.3 F 09/27/21 22:00 Pulse 108 H 09/28/21 04:00 Resp 22 H 09/28/21 04:00 BP 90/69 09/28/21 04:00 Pulse Ox 97 09/28/21 04:00 09/27/21 09/27/21 09/28/21 14:59 22:59 06:59 Intake Total 740 / 740 490 / 1230 50 / 1280 Output Total 200 / 200 200 / 400 Balance 540 / 540 290 / 830 50 / 880 Weight last 48 hrs Weight 140 lb Physical Exam Narrative: GENERAL: The patient is alert and oriented times three. Not in any acute distress. Moderate pallor HEENT: No icterus or lymphadenopathy.Oral cavity: There are no mucous membrane lesions. NECK: Trachea appears to be central. No masses noted. No JVD or thyromegaly appreciated. RESPIRATORY: Chest is symmetrical. No intercostals muscle retraction or any accessory muscle activation. There is no chest wall tenderness. Breath sounds are heard bilaterally. No rales or rhonchi heard. No evidence of any consolidation. BREASTS: Deferred. HEART: The heart sounds are normal. No S3 or S4. Systolic murmur grade 3 or 6 in the left sternal border.. No pericardial rub ABDOMEN: No vessel pulsations or distention. No tenderness. No organomegaly appreciated. Bowel sounds are normally heard. : Deferred. RECTAL: Deferred. LYMPHATIC: No lymphadenopathy noted in the neck. EXTREMITIES: No edema or cyanosis. No clubbing. MUSCULOSKELETAL: No acute joint deformities or swelling SKIN: Some ecchymotic areas at the IV sites NEUROPSYCHIATRIC: The patient is alert and oriented x3. Appears to be in a good mood. No tremors or rigidity noted. Data : 09/28/21 06:00 09/28/21 04:18 Other Labs: Laboratory Last Values WBC 19.3 10^3/uL (4.0-10.0) H 09/28/21 06:00 Corrected WBC Cancelled 09/28/21 04:18 RBC 4.93 10^6/uL (4.1-5.3) 09/28/21 06:00 Hgb 10.5 g/dL (11.7-16.6) L 09/28/21 06:00 Hct 35.0 % (42.0-52.0) L 09/28/21 06:00 MCV 71.0 fl (80-94) L 09/28/21 06:00 MCH 21.3 pg (28.0-34.0) L 09/28/21 06:00 MCHC 30.0 g/dL (30.0-36.0) 09/28/21 06:00 RDW 23.8 % (12.1-15.1) H 09/28/21 06:00 Plt Count 525 10^3/cmm (130-400) H 09/28/21 06:00 MPV 10.2 fL (7.4-10.4) 09/28/21 06:00 Gran % Cancelled 09/28/21 04:18 Neut % (Auto) 85.6 % 09/28/21 06:00 Lymph % (Auto) 4.3 % 09/28/21 06:00 [place] % (Auto) 9.3 % 09/28/21 06:00 Eos % (Auto) 0.0 % 09/28/21 06:00 Baso % (Auto) 0.2 % 09/28/21 06:00 Neut # (Auto) 16.48 10^3/uL (1.8-7.7) H 09/28/21 06:00 Lymph # (Auto) 0.8 10^3/uL (0.8-4.8) 09/28/21 06:00 [place] # (Auto) 1.8 10^3/uL (0.2-0.9) H 09/28/21 06:00 Eos # (Auto) 0.0 10^3/uL (0.0-0.8) 09/28/21 06:00 Baso # (Auto) 0.0 10^3/uL (0.0-0.1) 09/28/21 06:00 Absolute Gran (auto) Cancelled 09/28/21 04:18 Nucleated RBC % (auto) 0.6 % 09/28/21 06:00 Nucleated RBCs # 0.1 /100WBC 09/28/21 06:00 D-Dimer 0.97 ug/mIFEU (0-0.59) H 09/26/21 05:35 Specimen Type Arterial 09/26/21 06:08 Sample Site Radial, left 09/26/21 06:08 ABG pH 7.36 (7.35-7.45) 09/26/21 06:08 ABG pCO2 25.5 mmHg (35-45) L 09/26/21 06:08 ABG pO2 166.0 mmHg (80.0-100.0) H 09/26/21 06:08 ABG HCO3 14.3 mmol/L (22-26) L 09/26/21 06:08 ABG Base Excess -10.4 mmol/L (-2.0-2.0) L 09/26/21 06:08 Ted Test Pos 09/26/21 06:08 Hematocrit 17.2 % (42-52) L 09/26/21 06:08 O2 Delivery Device Nc 09/26/21 06:08 O2 Liters/Min 3.0 % 09/26/21 06:08 Fitter Helper ID Vika 09/26/21 06:08 Sodium 137 mmol/L (136-145) 09/28/21 04:18 Potassium 5.2 mmol/L (3.5-5.1) H 09/28/21 04:18 Chloride 106 mmol/L (98-107) 09/28/21 04:18 Carbon Dioxide 16 mmol/L (22-29) L 09/28/21 04:18 Anion Gap 20.2 (5-19) H 09/28/21 04:18 BUN 36 mg/dL (8-23) H 09/28/21 04:18 Creatinine 0.9 mg/dL (0.7-1.2) 09/28/21 04:18 GFR Calculation Not Reportable 09/28/21 04:18 Glucose 117 mg/dL (65-115) H 09/28/21 04:18 POC Glucose 262 mg/dL (70-110) H 09/26/21 05:35 Calculated Osmolality 293 mOsm/kg (285-295) 09/28/21 04:18 Lactic Acid 8.1 mmol/L (0.5-2.2) H* 09/26/21 08:05 Lactic Acid (Sepsis) 6.2 mmol/L (0.5-2.2) H* 09/26/21 11:14 Calcium 8.4 mg/dL (8.5-10.5) L 09/28/21 04:18 Magnesium 2.2 mg/dL (1.7-2.3) 09/28/21 04:18 Iron 28 ug/dL (59-158) L 09/26/21 11:14 TIBC 350 mcg/dl 09/26/21 11:14 % Saturation 8.0 % (20-50) L 09/26/21 11:14 Unsat Iron Binding 322 ug/dL (112-347) 09/26/21 11:14 Ferritin 8 ng/mL (30-400) L 09/26/21 11:14 Total Bilirubin 1.3 mg/dL (0.15-1.2) H 09/28/21 04:18 AST 126 U/L (0-40) H 09/28/21 04:18 ALT 140 U/L (0-41) H 09/28/21 04:18 Alkaline Phosphatase 134 IU/L (40-130) H 09/28/21 04:18 Troponin T Baseline 447 ng/L (0-15) H* 09/26/21 05:35 Troponin T 120 Minute 440.4 ng/L (0-15) H 09/26/21 07:18 Delta Troponin T -6.6 ABS# (0-10) L 09/26/21 07:18 Troponin T Hi Sens 6Hr 889.1 ng/L (0-15) H 09/26/21 11:14 Troponin T Hi Sens 6Hr Delta 442.1 ng/L (0-12) H* 09/26/21 11:14 NT-Pro-B Natriuret Pep 67022 pg/mL (0-125) H 09/26/21 05:35 Total Protein 5.8 g/dL (6.6-8.7) L 09/28/21 04:18 Albumin 3.2 g/dL (3.5-5.2) L 09/28/21 04:18 Globulin 2.6 g/dL (1.3-4.6) 09/28/21 04:18 Triglycerides 74 mg/dL (0-150) 09/27/21 02:52 Triglycerides Cancelled 09/27/21 02:52 Cholesterol 101 mg/dL (0-200) 09/27/21 02:52 Cholesterol Cancelled 09/27/21 02:52 LDL Cholesterol, Calc 53 mg/dL (50-129) 09/27/21 02:52 LDL Cholesterol, Calc Cancelled 09/27/21 02:52 HDL Cholesterol 33 mg/dL (60-100) L 09/27/21 02:52 HDL Cholesterol Cancelled 09/27/21 02:52 LDL/HDL Ratio 1.61 RATIO (0.00-3.22) 09/27/21 02:52 LDL/HDL Ratio Cancelled 09/27/21 02:52 Cholesterol/HDL Ratio 3.06 mg/dL (1.0-5.00) 09/27/21 02:52 Cholesterol/HDL Ratio Cancelled 09/27/21 02:52 TSH 3.66 uIU/mL (0.27-4.20) 09/26/21 11:14 Urine Color Yellow (Yellow) 09/27/21 06:10 Urine Appearance Clear (CLEAR) 09/27/21 06:10 Urine pH 5 (5-7) 09/27/21 06:10 Ur Specific [place] 1.015 (1.005-1.030) 09/27/21 06:10 Urine Protein 1+ (Negative) H 09/27/21 06:10 Urine Glucose (UA) Norm (Normal) 09/27/21 06:10 Urine Ketones 1+ (Negative) H 09/27/21 06:10 Urine Blood 2+ (Negative) H 09/27/21 06:10 Urine Nitrate Negative (Negative) 09/27/21 06:10 Urine Bilirubin Neg (Negative) 09/27/21 06:10 Urine Urobilinogen Norm mg/dL (Negative) 09/27/21 06:10 Ur Leukocyte Esterase Negative (Negative) 09/27/21 06:10 Urine RBC Rare /hpf (0-2) 09/27/21 06:10 Urine WBC Rare /hpf (0-5) 09/27/21 06:10 Ur Squamous Epith Cells None /hpf (0-5) 09/27/21 06:10 Amorphous Sediment Not Reportable 09/27/21 06:10 Urine Bacteria Trace /hpf (NONE) 09/27/21 06:10 Blood Type O Positive 09/26/21 08:05 Rho(D) Type Positive 09/26/21 08:05 Antibody Screen Negative 09/26/21 08:05 Crossmatch See Detail 09/26/21 08:05 Micro: Microbiology 09/27/21 16:29 Blood Culture - Preliminary Blood SPECIMEN COLLECTED 09/27/21 16:27 Blood Culture - Preliminary Blood SPECIMEN COLLECTED 09/26/21 14:19 MRSA Culture - Final Nose 09/26/21 08:05 Blood Culture - Preliminary Blood Staphylococcus epidermidis 09/26/21 08:18 Blood Culture - Preliminary Blood NEGATIVE TO DATE A&P Assessment and plan (1) Non-ST elevation [place] (NSTEMI): Patient's clinical features are consistent with an acute non-ST elevation myocardial infarction complicated with congestive heart failure. It is very possible that the patient may have underlying severe coronary artery disease. Currently he is stable and asymptomatic. His blood pressure is soft. He requires an early cardiac catheterization for further management of his condition. Patient is agreeable to go ahead with the procedure. Also discussed with Dr. Shankar.since there is no active GI bleed, it was thought to be appropriate to go ahead with the angiogram at this time. Because of the patient's abnormal kidney function, he carries a high risk for contrast-induced nephropathy and other complications. This was discussed with the patient detail which is understood well. Since the hemoglobin is stable, I may go ahead and give aspirin 325 mg p.o. now and daily Status: Acute (2) Ischemic cardiomyopathy: Patient's ejection fraction was 25% by echocardiogram. Patient is at high risk for arrhythmia. He needs to be closely monitored on telemetry. Status: Acute (3) Severe anemia: Patient had blood transfusion. Current hemoglobin is around 10. We will be repeating this in the morning. Status: Acute (4) Dyslipidemia: Patient was started on statin. Need to watch liver functions closely Status: Acute (5) Severe mitral regurgitation: The etiology is not clear. Patient may require a KALLI, to better evaluate the mitral regurgitation. Status: Acute (6) Rectal mass: This need to be further evaluated. Status: Acute (7) Stage III chronic kidney disease: The BUN/creatinine is improving. Most likely it is an acute kidney injury, possibly from the low output state. His liver enzymes also are coming down Status: Acute (8) Neutrophilic leukocytosis: The white cell count is trending down. Patient is remaining afebrile. He is on broad-spectrum antibiotic coverage. Status: Acute Plan Elevated liver enzymes -possibly from ischemic liver injury, seems to be coming down Symptoms a CBC could not be done early this morning, the cardiac catheterization had to be postponed for this afternoon. We will keep him n.p.o. Based on the cardiac colorization data, further recommendations will be made. Attestations Medical Necessity Statement*: Patient requires continued hospital stay for close monitoring and further management Coding Level of Care Code Acute Ad Taker for Chg Fwd History Expanded Problem Focused Exam Detailed Medical Decision Making Moderate Complexity Diagnoses Non-ST elevation WI (NSTEMI) I21.4 Ischemic cardiomyopathy I25.5 Severe anemia D64.9 Dyslipidemia E78.5 Severe mitral regurgitation I34.0 Rectal mass K62.89 Stage III chronic kidney disease N18.30 Neutrophilic leukocytosis D72.9
--- NOTE | 2021-09-28 06:55 | W.PM.OPSUD ---
Surgery/Procedure H&P Update DATE OF PROCEDURE: September 28, 2021 DATE H&P PERFORMED: 09/27/21 H&P UPDATE INFORMATION: I have reviewed H&P completed within last 30 days, I have examined patient prior to procedure and No changes to prior documentation PREOP DIAGNOSIS: Non-ST elevation myocardial infarction/ASHD/cardiomyopathy/congestive heart PRIMARY INDICATION FOR PROCEDURE: As mentioned above PLANNED PROCEDURE: Left heart catheterization with left and right coronary angiogram, possible LV angiogram and PCI PHYSICAL EXAM: alert, oriented x 3, clear to auscultation bilaterally and regular rate & rhythm AIRWAY EVAL/ANESTHESIA PLAN: normal airway, see other exam findings, ASA III, Local Anesthesia, Risks, benefits & alternatives of sedation and/or procedure discussed and Patient agrees to continue as planned
[2021-09-28] MEDS: piperacillin-tazobactam 3.375 GM in sodium chloride 0.9% (plus) 50 ML IV (07:12)
--- NOTE | 2021-09-28 07:28 | PM.PN ---
Subjective Subjective: Patient is awake and alert. He denies any chest pain. No shortness of breath. Occasional cough. Nurse notes he has a scant amount of blood in his stool with his last bowel movement. No nausea or vomiting. Appreciate cardiology and surgical services who saw him yesterday. He complains he has some anxiety. Medications: Reviewed: Yes Vitals/I&O/Wt Last Vital Signs Temp 98.3 F 09/27/21 22:00 Pulse 108 H 09/28/21 04:00 Resp 22 H 09/28/21 04:00 BP 90/69 09/28/21 04:00 Pulse Ox 97 09/28/21 04:00 09/27/21 09/28/21 09/28/21 22:59 06:59 14:59 Intake Total 490 / 1230 50 / 1280 Output Total 200 / 400 Balance 290 / 830 50 / 880 Weight last 48 hrs Weight 63.503 kg Physical Exam Narrative: General exam demonstrates a male in no apparent distress Neck is supple no lymphadenopathy or thyromegaly Cardiovascular tachycardic, no murmur. No S3 or S4 Lungs clear to auscultation bilaterally. No wheezing or crackles Abdomen is soft nontender positive bowel sounds. No obvious organomegaly Extremities no cyanosis clubbing or edema, cap refill brisk Skin no rash Neuro no focal deficits. Data : 09/28/21 06:00 09/28/21 04:18 Micro: Microbiology 09/27/21 16:29 Blood Culture - Preliminary Blood SPECIMEN COLLECTED 09/27/21 16:27 Blood Culture - Preliminary Blood SPECIMEN COLLECTED 09/26/21 14:19 MRSA Culture - Final Nose 09/26/21 08:05 Blood Culture - Preliminary Blood Staphylococcus epidermidis 09/26/21 08:18 Blood Culture - Preliminary Blood NEGATIVE TO DATE A&P Assessment and plan (1) Anemia: Severe anemia, microcytic. I suspect this is been going on quite a while. Likely linked to concern of rectal mass. Severe anemia as cause complication of non-ST elevation myocardial infarction, hypotension, severe acidosis. Ultimately where he received 3 units of packed red blood cells. Hemoglobin this morning 10.3. Iron studies consistent with iron deficiency anemia Continue Protonix IV Secondary to concern of rectosigmoid mass, severe anemia, surgery consult will be obtained for possible direct visualization of mass, biopsies. They have visited with cardiology and evaluation of heart will occur first. Status: Acute (2) Non-ST elevation [place] (NSTEMI): This is likely caused by severe anemia on presentation. Continue statin. Received 1 dose of aspirin yesterday. Scant amount blood in stool noted last night. Echocardiogram demonstrates EF around 25% Cardiology consultation appreciated. Angiogram planned today. Status: Acute (3) Hypotension: Likely secondary to his severe anemia. This is improved. He did require a small amount of norepinephrine, which has been tapered off Fluids have now been discontinued as he appears euvolemic, and could have significant decompensation from heart failure should significant fluid still be administered with his EF of 25%. Status: Acute (4) Rectal mass: Concern of rectal mass noted in colon. Has underlying anemia, likely iron deficient Surgery consultation appreciated Status: Acute (5) D-dimer, elevated: Secondary to acute illness. Pulmonary embolism not seen on CTA Status: Acute (6) Pneumonia: Probable right lower lobe pneumonia, possible aspiration noted on admission. Continue Zosyn IV. MRSA PCR negative Oxygen as needed Blood culture growing 1 out of 4 bottles gram-positive cocci. This is staph epidermidis and contaminant Status: Acute (7) Metabolic acidosis: Secondary to severe anemia and hypotension. Improved but still present Status: Acute Plan Elevated liver test, mild elevation of potassium, mild elevation of creatinine. This is all consistent with his severe hypotension on presentation, secondary to hypovolemic shock. This is all improving. Full code SCDs for DVT prophylaxis. Anticoagulation contraindicated secondary to severe anemia Attestations Medical Necessity Statement*: Needs continued hospital stay, for evaluation of non-ST elevation myocardial infarction, rectal mass, severe anemia. Coding Level of Care Code Acute Factory Machine Computer Operator for Melanie Acosta Diagnoses Anemia D64.9 Non-ST elevation [place] (NSTEMI) I21.4 Hypotension I95.9 Rectal mass K62.89 D-dimer, elevated R79.89 Pneumonia J18.9 Metabolic acidosis E87.2
--- NOTE | 2021-09-28 07:51 | PC.NURSE ---
Patient off unit with labor relations consultant staff at this time
[2021-09-28 08:23] LABS: Carcinoembryonic Antigen 25.2 ng/mL (0.0-4.7)
--- NOTE | 2021-09-28 09:07 | PM.MISC ---
Miscellaneous Note Purpose of Documentation: I have conferred with my colleagues Dr. Mederos and Dr. Allen. I have reviewed the diagnostic cath from earlier today as well as reports from CT scan. Given the only practical addressable lesion is the proximal LAD, I feel it is an unfavorable risk to benefit ratio to attempt surgical revascularization of this vessel. Potential malignancy, poor overall health, severe MR, and depressed EF as a combination I feel are prohibitive from a surgical approach to address the LAD proximal lesion. I concur with the opinions of Dr. Mederos and Dr. Allen.
--- NOTE | 2021-09-28 09:19 | PC.NURSE ---
patient back from cheesemaking laborer, Dr. Francois to be consulted, plan of care to be determined after consult
[2021-09-28] MEDS: pantoprazole 40 mg SDV IVP (11:03)
--- NOTE | 2021-09-28 14:05 | PC.NURSE ---
Patient off unit with civil laboratory technician staff at this time
--- NOTE | 2021-09-28 14:06 | XACV_ITS ---
Exam Room: [facility] Ht: 170 cm Wt: 64 kg BSA: 1.73 m2 Gender: Male : 1945 Exam Priority: Routine Procedure(s): Procedure Description: Diagnostic procedure Procedure Description: Coronary Angiography Diagnostic Cath Status: Urgent Diagnostic Findings * Patient was admitted with * positive troponin and abnormal EKG. * He has been found to have a colon mass * requiring * colonoscopy and possible further surgery. * Echo suggest severe left ventricular dysfunction, 4+ mitral regurgitation * and * severe hypokinesis to akinesis of the mid anterior wall and apex. * He underwent coronary angiography earlier today by Dr. Mederos which revealed a * occluded right coronary artery in the midportion with heavy calcification of the vessel * and a thrombus in the proximal portion. * There is some collateral flow from the left system to the distal right. * The left main coronary artery reveals * a normal vessel. The proximal LAD is calcified * and there are two 90% lesions * in the proximal LAD. * There is also a 50 to 60% lesion * in the mid LAD at the takeoff of the second diagonal branch. * The circumflex contains mild diffuse disease. * He was brought back this afternoon * after surgical consultation * for purposes of an attempt * to open the right coronary artery * and for intervention to the proximal LAD. He was deemed nonsurgical.. PCI Status: Urgent PCI LVEF Assessed: No PCI Indication: NSTE - ACS Interventional Findings * First, a right coronary artery guide was placed. A wire was placed past the point of occlusion in the mid vessel down to the distal artery. Due to lack of visualization I could not tell where the wire was in the distal right. Several balloon angioplasty attempts were made in the mid vessel at the point of occlusion. This was unsuccessful. This appears to be a chronic total occlusion. The vessel is heavily calcified. * Then a left coronary guide was placed. A wire was placed down the LAD. Initially a balloon angioplasty was performed of the proximal 2 lesions. Subsequently a bare-metal stent 3.0 x 26 mm was placed across both lesions in the proximal LAD with a good angiographic result. Decision for PCI with Surgical Consult: Yes CV Treatment Decision: Surgery Not Recommended PCI for Multi-vessel Disease: Yes Multi-vessel Procedure Type: Initial PCI Conclusions 1. Unsuccessful angioplasty of the chronically occluded right coronary artery. Successful bare-metal stent placement of the proximal LAD. Recommendations * Plavix for 30 days. Interventional RX Recommendation: PCI w/o planned CABG Diagnostic RX Recommendation: PCI w/o planned CABG Anticoagulation: Heparin Pressures Phase:Rest AO : 91 / 57 ( 72 ) @ 3:26:00 PM 92 / 82 ( 87 ) @ 3:49:00 PM 91 / 73 ( 82 ) @ 3:52:00 PM 94 / 77 ( 85 ) @ 3:57:00 PM Clinical Evaluation EBL: 5mL-10mL Procedural Details Procedure Consent Obtained. Pre-Procedure Time Out. Identified patient by full name and date of as verbalized by the patient/guarantor. Does the consent match the physician's order: Yes. Accurate & Complete Informed Consent: Yes. Inpatient/Outpatient History & Physical on Chart: Yes. If H&P is completed, is and addenduem needed: N/A; If yes, is the addendum complete: N/A. Visualize and Verify Site with Patient/Guarantor: N/A. Relevant Radiology Images available: N/A. Pre-op teaching completed and patient verbalized understanding. The risks, benefits, and alternatives of sedation and/or procedure were discussed by physician. The patient agrees to continue. Procedure started. [facility] Clinical Fraility Score: 4: Vulnerable. Rn Quality Indications: Cardiomyopathy. Chest Pain Symptom Assessment: Atypical Angina. Correct patient, site and procedure confirmed by cath team. Current diagnosis: NSTEMI, Cardiomyopathy. PERRLA. Strong, equal hand travel rn or bilaterally. Lungs clear x 5 lobes. IV Site on Arrival: 18 gauge in the right forearm. IV Fluids: 0.9% NaCl at KVO. 400 mL infused prior to labor specialist. Pre Procedural Pulses: right radial was 1+. Oxygen started at 2liters/min via nasal canula. right groin was prepped with chloroprep then draped in the usual sterile fashion. right radial was prepped with chloroprep then draped in the usual sterile fashion. Physician notified. Baseline sample Acquired. HR: 115 BPM. Physician arrived. Physician scrubbed in. Vital chart was stopped. Vital chart was stopped. Immediate Pre-Procedure Time Out. Correct Patient: Yes; Correct Procedure: Yes; Correct Site: Yes; Correct Patient Position: Yes; Correct Supplies: Yes; Dried Flammable Prep: Yes; Blood Products Available: N/A;. 6 Fr Radial sheath patient arrived with exchanged for new 6Fr radial sheath. 6 nepali JR 4 guide catheter was inserted over the wire. [place] guidewire was advanced through the guide catheter to lesion in the mid Circ. Balloon inserted to lesion in the mid RCA. Inflation number : 1 A AB TREK 2.50X30 RX BALLOON was prepped and advanced across the Mid RCA , then inflated to 8 DONYA for 0:23 seconds. Inflation number: 2 The AB TREK 2.50X30 RX BALLOON was reinflated across the Mid RCA, to 8 DONYA for 0:33 seconds. Balloon and wire out. Results checked. Guide catheter out. 6 nepali XB 3 guide catheter was inserted over the wire. [place] guidewire was advanced through the guide catheter to lesion in the prox LAD. Inflation number: 1 The AB TREK 2.50X30 RX BALLOON was reinflated across the Prox LAD, to 8 DONYA for 0:31 seconds. Automatic blood pressure cuff not operating. Monitoring blood pressure from arterial line. Balloon out. Stent inserted to lesion in the prox LAD. Inflation Number : 2 A MDT INTEGRITY [id number] BMS RX -Lot Number# [id number] Exp was prepped and advanced across the Prox LAD. The stent was deployed at 9 DONYA for 0:20 seconds. Stent balloon out over wire. Results checked. Wire and catheter removed. Total IV fluids: 48 mL. Medication's Wasted: Other = Versed 1 mg. Post-op diagnosis: Obstructive CAD. Complications: none. Post Procedure: Pulses reassessed and unchanged. A TR Band was successful obtaining hemostatsis at the Right Radial artery insertion site. PERRLA. Strong, equal hand travel rn or bilaterally. No VTE prophylaxis required. Estimated blood loss: 5mL-10mL. Responsiveness - Normal response to verbal stimuli; alert and oriented, PERRLA. Airway - Unaffected, no intervention required; spontaneous ventilation. Circulation: W/N/L, pulses unchanged. Nausea/Vomiting: No. Procedure completed. Patient transferred by bed to ICU. Vital chart was stopped. Access Site Site: Right Radial artery Sheath Size: 6 Fr Hemostasis Method: TR Band Hemostasis Success: Successful Procedure Medications Start: 2:19 PM Stop: 2:19 PM Medication: Versed Amount: 1 mg Route: I.V. Start: 2:23 PM Stop: 2:23 PM Medication: Versed Amount: 1 mg Route: I.V. Start: 2:23 PM Stop: 2:23 PM Medication: Fentanyl Amount: 25 mcg Route: I.V. Start: 2:29 PM Stop: 2:29 PM Medication: Heparin Amount: 5000 units Route: I.V. Start: 2:54 PM Stop: 2:54 PM Medication: Versed Amount: 1 mg Route: I.V. I, the attending physician, have reviewed and verified all procedure medications. Yes, all medications given per verbal order History/Risk Factors Hypertension: No Dyslipidemia: Yes Peripheral Arterial Disease (PAD): No Myocardial Infarction (NC): No Obesity: No Renal Disease: No Tobacco Use: Former Prior Interventions PCI: No CABG: No Valve Surgery: No Report Signatures Finalized by Dr. Ryan Allen MD on 09/28/2021 03:22 PM
--- NOTE | 2021-09-28 16:17 | P.DES_ITS ---
Discharge Providers DDS Date of Admission: 09/26/21 10:03 Date Summary Completed: 09/28/21 Attending Provider at Admission: Kalpesh Lockwood MD Time of : 16:02 Attending Provider at Discharge: Kalpesh Lockwood MD Primary Care Provider: ABY Guallpa Diagnoses Hospital Diagnoses (1) Anemia: (2) Non-ST elevation WI (NSTEMI): (3) Hypotension: (4) Rectal mass: (5) D-dimer, elevated: (6) Pneumonia: (7) Metabolic acidosis: Reason for Visit Reason for Visit CHEST PAIN Summary Date and Time of Date of : 09/28/21 Time of : 16:02 Summary Summary: Mr. Burroughs is a 75-year-old white male who presented to the hospital on September 26 with severe shortness of breath. He was found to be profoundly anemic, microcytic, had to have an elevated troponin consistent with non-ST elevation myocardial infarction. He was also hypotensive. He was hydrated, and transfused ultimately 3 units of blood. CTA of chest abdomen and pelvis demonstrated no pulmonary embolism. A distal sigmoid to rectal mass was noted. Concern of pneumonia was also noted and he was placed on Zosyn. Consultations were obtained with cardiology, and general surgery secondary to his non-ST elevation myocardial infarction as well as colonic/rectal mass. Echocardiogram was obtained which demonstrated ejection fraction of 25%, and severe mitral regurgitation. Through a multidisciplinary approach, it was decided that angiogram was important first further work-up. He was taken to the angiogram suite on September 28, and was found to have high-grade lesions in the proximal and mid LAD, moderate disease in circumflex, and total occlusion of his right coronary artery. Discussion occurred with the patient, and cardiothoracic surgery, and determined he was not a candidate for bypass. He was then taken back to the ang iogram suite, and attempts were made to open of his right coronary which were not successful. Balloon angioplasty, and bare-metal stents were performed to the LAD lesions. Upon arrival back to the ICU while recovering he was found to be unresponsive, PEA diagnosed, and CPR initiated. He received multiple doses of epinephrine, and at one point went into ventricular fibrillation. During this time for defibrillations occurred, and 2 doses of amiodarone were given. Bicarbonate was given throughout the code as well, 3 amps. After prolonged code greater than 15 minutes, last rhythm being PEA, the code was called. Time of 1602. A bedside ultrasound was also performed by the emergency department physician, ensuring there was no pericardial tamponade that would suggest coronary perforation. Patient was also intubated during the code, and had good bilateral breath sounds and color change indicating correct placement of endotracheal tube. Final cause of , acute myocardial infarction. Compounding medical problems were colon mass, severe anemia. I discussed the hospital course, and code situation with his family, his brother, and answered all questions I could. Additional Data Confirmation of as documented by pronouncing clinician: no pulse and no respirations Advance directives?: No Discharge Plan Discharge Patient Disposition: Condition: Stable Prescriptions: No Action No Known Home Medications 0RF Referrals: Nelida Gunn, DIRECTOR OF OPERATIONS FOR THERAPY-C [Primary Care Provider] - DS Attestations Time Spent in /Discharge Care*: greater than 30 min Quality - AMI: AMI present?: Yes Quality - Stroke: CVA present?: No Quality - VTE: VTE present?: No Coding Level of Care Code Acute Sound Controller for Chg Fwd Diagnoses Anemia D64.9 Non-ST elevation WI (NSTEMI) I21.4 Hypotension I95.9 Rectal mass K62.89 D-dimer, elevated R79.89 Pneumonia J18.9 Metabolic acidosis E87.2
--- NOTE | 2021-09-28 16:22 | PC.NURSE ---
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
--- NOTE | 2021-09-28 16:27 | PM.CCNAC ---
Critical Care Event Note CODE BLUE called for this patient. I responded to the ICU and intubated the patient see procedure note below. Dr. Madera is patient's attending and he ran a code see his notes for the remainder of the details. Critical Care Time Code activated: Yes Critical Care Time (min): 0 Procedures Intubation Time out performed: Yes Laryngoscope: Elzbieta ET tube size: 8 ET tube uncuffed: No Tube secured depth (cm): 22 Tube secured location: teeth Tube placement confirmation: visualized tube passing through cords, equal breath sounds bilaterally, no breath sounds over epigastrium, confirmation by capnometry and color change noted Patient tolerated procedure: well Intubation complications: none Additional comments: Within the first few breaths there was good condensation in the tube but also developed a large amount of blood within the tube suction used to clear some of the bloody fluids. Coding Level of Care Code Acute Storage Solutions Architect for Melanie Acosta
--- NOTE | 2021-09-28 16:34 | PC.NURSE ---
approximately 1538 patient presented with difficulty breathing, became unresponsive lost pulse, this nurse yelled for crash cart and code blue, chest compressions started 1539, see code sheet for further
--- NOTE | 2021-09-28 16:38 | PM.MISC ---
Miscellaneous Note Note: I was called to the ICU a short time ago for CODE BLUE on this patient. He had only recently returned from the catheterization laboratory where an angioplasty attempt was made to the right coronary artery and a bare-metal stent was placed to his LAD. The angioplasty attempt to the right coronary artery was unsuccessful because it is a chronic total occlusion. Stent placement to the proximal LAD was uneventful. According to the nurse the patient became profoundly short of breath rather quickly and was gurgling and subsequently became bradycardic and then coded. Upon intubation there was significant frothy bloody fluid in the endotracheal tube. He was hard to bag. ACLS protocol took place for approximately 30 minutes. I also performed a quick bedside ultrasound to ensure there was no pericardial effusion. There was none. Unfortunately, the patient did not survive the event. This was likely acute pulmonary edema secondary to underlying existing severe left ventricular dysfunction with an ejection fraction of 20% with akinesis of the anterior wall and apex, severe underlying coronary artery disease and wide-open mitral regurgitation. He had also had contrast material earlier in the day to perform coronary angiography.
--- NOTE | 2021-09-28 16:44 | PC.NURSE ---
TOJonas called 1602, Dr. Lockwood spoke with family
--- NOTE | 2021-09-28 17:18 | PC.NURSE ---
[facility] called and informed this nurse patient is not a candidate for donation
--- NOTE | 2021-09-28 20:44 | PC.NURSE ---
[facility] picked patient up 2033
--- NOTE | 2021-10-16 10:28 | PC.NURSE ---
Message received from patients brother Doug . Doug states he is having difficulty obtaining certificate. Assisted Doug by calling [facility]. [facility] reports they transported body for [facility]. Contacted [facility], spoke with them and Christal states they have all needed information but hadn't yet gotten certificate complete. Christal states they can have this completed as soon as today or tomorrow. Called Doug back and closed loop of communication. Gave Doug contact info for [facility]. Family denies other needs at this time.
== END 2021-09-28 20:34 | disposition expired | DRG 248 ==
LOC: ER 10:08 → ICU 10:13
PROVIDERS: Emergency Medicine; Internal Medicine Cardiovascular Disease; Admitting Provider Internal Medicine; Emergency Provider Family Medicine; PCP Nurse Practitioner; Visit Provider Internal Medicine
PROC: 4A023N7 Measurement of Cardiac Sampling and Pressure, Left Heart, Percutaneous Approach (ICD-10-PCS; principal; 2021-09-28 08:30)
PROC: 02703DZ Dilation of Coronary Artery, One Artery with Intraluminal Device, Percutaneous Approach (ICD-10-PCS; principal; 2021-09-28 14:00)
DX: I21.4 Non-ST elevation (NSTEMI) myocardial infarction (principal); J69.0 Pneumonitis due to inhalation of food and vomit; K92.2 Gastrointestinal hemorrhage, unspecified; I50.20 Unspecified systolic (congestive) heart failure; E87.2 Acidosis; I25.10 Atherosclerotic heart disease of native coronary artery without angina pectoris; I25.5 Ischemic cardiomyopathy; Z87.891 Personal history of nicotine dependence; D50.9 Iron deficiency anemia, unspecified; K62.9 Disease of anus and rectum, unspecified; I95.9 Hypotension, unspecified; I21.9 Acute myocardial infarction, unspecified; I49.01 Ventricular fibrillation; D72.9 Disorder of white blood cells, unspecified; N18.30 Chronic kidney disease, stage 3 unspecified; Z82.49 Family history of ischemic heart disease and other diseases of the circulatory system; I34.0 Nonrheumatic mitral (valve) insufficiency; F10.11 Alcohol abuse, in remission; R57.1 Hypovolemic shock
CPT/HCPCS: 36415; 36416; 36430; 36600; 71045; 71275; 74177; 80053; 80061; 81001; 82274; 82378; 82728; 82803; 82962; 83540; 83550; 83605; 83735; 83880; 84443; 84484; 85014; 85018; 85025; 85378; 86850; 86900; 86920; 87040; 87150; 87205; 87641; 92920; 92928; 93005; 93306; 93458; 96365; 96375; 99152; 99153; 99291; 99292; C1725; C1769; C1876; C1887; C1894; C9113; J1644; J2250; J2543; J3010; J3370; J3490; J7030; J7040; P9016; P9040; Q0163; Q9967